=== PATIENT | male | born 1970 | race Caucasian/White ===

== ENCOUNTER → 2020-08-17 11:14 | Outpatient (BNVA) | payer OTHER, SELFPAY | PROVIDERS: Visit Provider Internal Medicine Gastroenterology | DX: Z76.89 Persons encountering health services in other specified circumstances (principal) ==

== ENCOUNTER 2020-08-18 11:05 | Day surgery (SDC) | payer OTHER, SELFPAY ==
--- NOTE | 2020-08-17 09:48 | P.CONAN_ITS ---
[facility] Family History Family History Father No problems noted. Mother No problems noted. Surgical History Surgical History Hx of hand surgery Social History Social History Smoking Status: Never smoker Use of substances other than those prescribed or required for medical reasons: No Meds Allergies Allergy/AdvReac Type Severity Reaction Status Date / Time No Known Allergies Allergy Unverified 05/20/20 19:41 [No Known Allergies*] Exam Airway Mallampati Class: II TM Dist: >3cm Neck ROM: Full
[2020-08-18 10:54] VITALS: BP 146/72; PULSE 83; RESP 20; TEMP 36.4; O2SAT 99; BMI 39.4
--- NOTE | 2020-08-18 11:10 | PC.NURSE ---
Patient has cirrhosis/ hasn't had alcohol x 3 years
--- NOTE | 2020-08-18 11:19 | MHC.SHP ---
Pre-Procedural Eval Section B Chief Complaint: Screening Relevant Family History (Specify if Yes): No Relevant Social History: None Present Medications: see Short Stay Collaborative assessment Medical History: Significant History (HTN, cirrhosis, h pylori) History of Previous Operations: No relevant previous surgery Allergies: Allergies Allergy/AdvReac Type Severity Reaction Status Date / Time No Known Allergies Allergy Unverified 05/20/20 19:41 [No Known Allergies*] Review of Systems Sugical H&P ROS: Negative: Constitution, Cardiovascular, Respiratory, Neurological, Psychiatric, Hem-Onc, Allergic/Immunologic, Gastrointestinal, Genitourinary, Musculoskeletal, Integumentary, Endocrine and Eyes/Ears/Nose/Throat Exam Surgical H&P Exam: Normal: HEENT, Normal: Heart, Normal: Lungs, Normal: Extremities, Normal: Abdomen, Normal: Skin and Normal: Neurological Plan Diagnosis/Plan: Unchanged Patient has been examined and remains a candidate for the planned procedure
--- NOTE | 2020-08-18 12:04 | HO.ANESPROP2 ---
[facility] Family History Family History Father No problems noted. Mother No problems noted. Surgical History Surgical History Hx of hand surgery Social History Social History Alcohol intake: never Smoking Status: Never smoker Use of substances other than those prescribed or required for medical reasons: No Have you been hit, kicked, punched, or otherwise hurt by someone within the past year? If so, by whom?: No Advance Directives: No Advance Directives Information Provided: Yes Recently lost weight without trying: No Meds Allergies Allergy/AdvReac Type Severity Reaction Status Date / Time No Known Allergies Allergy Unverified 05/20/20 19:41 [No Known Allergies*] Exam Exam Date and Time: August 18, 2020 1204 Height,Weight and Vital Signs: Height 5 ft 4 in Weight 104.326 kg Last Vital Signs Temp 97.6 F 08/18/20 10:54 Pulse 83 08/18/20 10:54 Resp 20 08/18/20 10:54 BP 146/72 H 08/18/20 10:54 Pulse Ox 99 08/18/20 10:54 Airway Mallampati Class: III TM Dist: >3cm Neck ROM: Full
--- NOTE | 2020-08-18 12:07 | PM.OP ---
Brief Operative Note Date of Service: 08/18/20 Pre-op diagnosis: colon screen Post-op diagnosis: same Procedure: Operative Information Procedure Description: Colonoscopy COLONOSCOPY Instrument: Olympus variable stiffness pediatric scope 190L Colonoscopy Monitoring: Vital signs and clinical assessment, continuous EKG monitoring, Pulse oximetry, Carbon Dioxide monitoring and blood pressure monitoring were done throughout the procedure. Colon withdrawal time was 23 minutes. Procedure: The patient was placed in the left lateral decubitis position and pre-procedure medications were administered. After a digital rectal examination of the ano-rectum, the video colonoscope was inserted into the rectum and advanced through the colon to the cecum/TI. The colonoscope was slowly withdrawn in a retrograde panoramic fashion and the colon mucosa was carefully examined including a retroflexed view of the rectum. Findings and interventions are described below. Procedure Difficulty: moderate Findings: Terminal Ileum-normal Cecum:normal Ascending Colon: normal Transverse Colon -normal Descending Colon:normal Sigmoid Colon: x 2 sessile polyps noted, one measured 10-12 mm and removed with cold snare, x 3 clips applied as he bled easily prob 2/2 liver disease, there was cessation of bleeding after clips applied. second polyp was sessile and measured 6-8 mm, again easily bled, one clip applied with cessation of bleeding Rectum: Retroflexion with small internal hemorrhoids, grade I Anorectum - normal Colon preparation: [place] Bowel Preparation Scale Right colon; 2 Transverse colon: 3 Left colon; 2 (0 = Unprepared colon segment with mucosa not seen due to solid stool that cannot be cleared. 1 = Portion of mucosa of the colon segment seen, but other areas of the colon segment not well seen due to staining, residual stool and/or opaque liquid. 2 = Minor amount of residual staining, small fragments of stool and/or opaque liquid, but mucosa of colon segment seen well. 3 = Entire mucosa of colon segment seen well with no residual staining, small fragments of stool or opaque liquid) Impression and Post Procedure Diagnosis: polyps internal hemorrhoids Plan: High fiber diet leaflet Avoid straining at stool, epsom salts and sitz bath, anusol supps or cream prn Repeat Colonoscopy in 5-10 years pending pathology, if adenoma then 5 yrs otherwise if hyperplastic then 10 yrs or earlier if clinically indicated Above findings were reviewed with the patient and relevant handouts were provided if indicated. Surgeon: Ernie Santos MD Anesthesia: MAC Estimated blood loss (mL): 0 Condition: stable Disposition: PACU
[2020-08-18 12:15] VITALS: BP 113/61; PULSE 102; RESP 20; TEMP 36.6; O2SAT 99
[2020-08-18 12:30] VITALS: BP 127/77; PULSE 97; RESP 18; O2SAT 96
[2020-08-18 12:44] VITALS: BP 123/67; PULSE 84; RESP 18; O2SAT 98
--- NOTE | 2020-08-18 14:20 | HO.POSTANES ---
Post Anesthesia Evaluation Post Anesthesia Evaluation Vital Signs: Vital Signs Temp Pulse Resp BP Pulse Ox 08/18/20 12:44 84 18 123/67 98 08/18/20 12:30 97 18 127/77 96 08/18/20 12:15 97.8 F 102 H 20 113/61 99 08/18/20 10:54 97.6 F 83 20 146/72 H 99 Anesthesia: Monitored Mental Status: Awake Pain Control: Satisfactory Nausea/Vomiting: None Hydration: Adequate Anesthesia-Related Issues: No Anes. Related Issues
--- NOTE | 2020-09-16 21:22 | W.PM.OPN ---
Operative Note Operative Note Date of Service: 08/18/20 Narrative: Pre op diagnosis: colon screen Post-op diagnosis: same Procedure Description: Colonoscopy COLONOSCOPY Instrument: Olympus variable stiffness pediatric scope 190L Colonoscopy Monitoring: Vital signs and clinical assessment, continuous EKG monitoring, Pulse oximetry, Carbon Dioxide monitoring and blood pressure monitoring were done throughout the procedure. Colon withdrawal time was 23 minutes. Procedure: The patient was placed in the left lateral decubitis position and pre-procedure medications were administered. After a digital rectal examination of the ano-rectum, the video colonoscope was inserted into the rectum and advanced through the colon to the cecum/TI. The colonoscope was slowly withdrawn in a retrograde panoramic fashion and the colon mucosa was carefully examined including a retroflexed view of the rectum. Findings and interventions are described below. Procedure Difficulty: moderate Findings: Terminal Ileum-normal Cecum:normal Ascending Colon: normal Transverse Colon -normal Descending Colon:normal Sigmoid Colon: x 2 sessile polyps noted, one measured 10-12 mm and removed with cold snare, x 3 clips applied as he bled easily prob 2/2 liver disease, there was cessation of bleeding after clips applied. second polyp was sessile and measured 6-8 mm, again easily bled, one clip applied with cessation of bleeding Rectum: Retroflexion with small internal hemorrhoids, grade I Anorectum - normal Colon preparation: [place] Bowel Preparation Scale Right colon; 2 Transverse colon: 3 Left colon; 2 (0 = Unprepared colon segment with mucosa not seen due to solid stool that cannot be cleared. 1 = Portion of mucosa of the colon segment seen, but other areas of the colon segment not well seen due to staining, residual stool and/or opaque liquid. 2 = Minor amount of residual staining, small fragments of stool and/or opaque liquid, but mucosa of colon segment seen well. 3 = Entire mucosa of colon segment seen well with no residual staining, small fragments of stool or opaque liquid) Impression and Post Procedure Diagnosis: polyps internal hemorrhoids Plan: High fiber diet leaflet Avoid straining at stool, epsom salts and sitz bath, anusol supps or cream prn Repeat Colonoscopy in 5-10 years pending pathology, if adenoma then 5 yrs otherwise if hyperplastic then 10 yrs or earlier if clinically indicated Above findings were reviewed with the patient and relevant handouts were provided if indicated. Surgeon: Ernie Santos MD Anesthesia: MAC Estimated blood loss (mL): 0 Condition: stable Disposition: PACU
== END 2020-08-18 13:25 | disposition home or self-care (01) ==
PROVIDERS: Visit Provider Internal Medicine Gastroenterology
PROC: 0DJD8ZZ Inspection of Lower Intestinal Tract, Via Natural or Artificial Opening Endoscopic (ICD-10-PCS; CPT 45378; principal; 2020-08-18 11:30)
DX: Z12.11 Encounter for screening for malignant neoplasm of colon (principal); D12.5 Benign neoplasm of sigmoid colon; K64.0 First degree hemorrhoids
CPT/HCPCS: 45385; 88305

== ENCOUNTER → 2020-11-22 09:16 | Outpatient (BNVA) | payer OTHER, SELFPAY | PROVIDERS: Visit Provider Internal Medicine Gastroenterology ==

== ENCOUNTER 2020-11-29 10:50 | Outpatient (REF) | payer OTHER, SELFPAY ==
[2020-11-29 12:09] LABS: Basophils Percent Auto 0.7 % (0-2); Eosinophils Absolute Auto 0.1 X10*3/uL (0.0-0.4); Eosinophils Percent Auto 1.9 % (0-4); Imm Gran Abs Auto 0.01 X10*3/uL (0.00-0.03); Imm Gran Pct Auto 0.2 % (0.0-0.4); MANUAL DIFF FLAG SCAN; Red Cell Distribution Width 14.6 % (11.0-16.0); SCAN SMEAR FLAG 1
[2020-11-29 12:11] LABS: Hematocrit 38.5 % (42-52); Hemoglobin 12.9 g/dl (14.0-18.0); Lymphocytes Absolute Auto 0.8 X10*3/uL (1.2-4.9); Lymphocytes Percent Auto 19.1 % (20-40); Mean Corpuscular HGB Conc 33.5 g/dl (31.0-36.0); Mean Corpuscular Hemoglobin 26.8 pg (27.0-33.0); Mean Corpuscular Volume 79.9 fL (80-98); Mean Platelet Volume 12.6 fL (9.4-12.4); Monocytes Absolute Auto 0.3 X10*3/uL (0.1-1.2); Monocytes Percent Auto 7.9 % (2-11); Neutrophils Absolute Auto 2.9 X10*3/uL (2.0-8.3); Neutrophils Percent Auto 70.2 % (45-73); Red Blood Count 4.82 X10*6/uL (4.60-5.80); White Blood Count 4.2 X10*3/uL (4.8-10.8)
[2020-11-29 12:12] LABS: PLT ABN DIST 1; Platelet Count 90 X10*3/uL (160-400)
[2020-11-29 12:14] LABS: INTERNATIONAL NORM RATIO 1.3 (0.9-1.1); Prothrombin Time 14.9 SEC (10.8-13.0)
[2020-11-29 12:36] LABS: Alanine Aminotransferase 19 U/L (0-40); Albumin Level 4.3 g/dL (3.5-5.0); Alkaline Phosphatase 96 U/L (39-117); Anion Gap 13 (12-20); Aspartate Amino Transferase 31 U/L (5-37); Bilirubin Total 0.9 mg/dL (0.0-1.0); Blood Urea Nitrogen 4 mg/dL (9-16); Calcium 8.7 mg/dL (8.4-10.2); Carbon Dioxide 26 mmol/L (22-29); Chloride 105 mmol/L (96-108); Estimated Glomerular Filt Rate > 60; Glucose Random 97 mg/dL (60-115); Potassium 3.9 mmol/L (3.3-5.1); Sodium 140 mmol/L (135-145); Total Protein 7.1 g/dL (6.5-8.0)
== END 2020-11-29 10:51 | disposition home or self-care (01) ==
LOC: HO.LAB 10:50
PROVIDERS: Visit Provider Internal Medicine Gastroenterology
DX: K74.60 Unspecified cirrhosis of liver (principal)
CPT/HCPCS: 36415; 80053; 85025; 85610

== ENCOUNTER 2020-12-15 10:11 | Outpatient (REF) | payer OTHER, SELFPAY ==
--- NOTE | ~2020-12-15 | US_ITS ---
EXAMINATION: US ABDOMEN LIMITED WITH LIVER ELASTOGRAPHY CLINICAL INFORMATION: Cirrhosis of liver COMPARISON: Ultrasound abdomen the 2019 TECHNIQUE: Real-time imaging of the abdominal viscera. Noninvasive ultrasound liver fibrosis assessment is performed using [place] ElastPQ point quantification shear wave elastography (pSWE) with a C5-2 MHz transducer. Multiple elastography samples are obtained. FINDINGS: PANCREAS: Normal. The visualized pancreatic head and body are normal in appearance. The remainder of the pancreas is obscured from visualization by the overlying bowel gas. LIVER: The liver demonstrates normal size, lobulated contour and coarse increased echogenicity. No focal lesion or intrahepatic biliary duct dilatation. The right lobe measures 15.5 cm in length. The left lobe measures 14.2 cm in length. Portal flow is hepatopedal Shear wave liver elastography median stiffness is 1.59 m/s (reference: normal median stiffness is 1.3 m/s or less). IQR/median stiffness to assess sampling precision is 0.41 (reference: good quality data set is IQR/median stiffness of 0.15 or less). GALLBLADDER: Normal. The gallbladder is physiologically distended without evidence of stones, sludge, polyps, wall thickening or pericholecystic fluid. COMMON BILE DUCT: Normal in caliber measuring 0.5 cm in diameter. RIGHT KIDNEY: Normal. No hydronephrosis. No renal calculi or focal parenchymal lesions. The kidney measures 11.9 cm in maximum dimension. FREE FLUID: None. US/US abdomen kimball w elastography IMPRESSION: 1. Coarse echogenic liver without focal lesion. No additional abnormality seen. 2. Liver elastography: 1.59 m/s cACLD (ruled out) REFERENCE: Society of Radiologists in Ultrasound Liver Stiffness Thresholds (2020): LIVER STIFFNESS THRESHOLDS: *Liver Stiffness equal or less than 1.3 m/s: High probability of being normal. *Liver Stiffness less than 1.7 m/s: In the absence of other known clinical signs, rules out compensated advanced chronic liver disease. *Liver Stiffness 1.7-2.1 m/s: Suggestive of compensated advanced chronic liver disease but need further test for confirmation. *Liver Stiffness over 2.1 m/s: Rules in compensated advanced chronic liver disease. *Liver Stiffness over 2.4 m/s: Suggestive of clinically significant portal hypertension. QUALITY OF DATA SET: *IQR/Median value equal or less than 0.15 implies a quality data set. *IQR/Median value over 0.15 implies a poor quality data set. SIGNIFICANT CHANGE FROM PRIOR EXAM: Significant change if liver stiffness measurement is 10% or greater from prior exam. OTHER CONSIDERATIONS: The stage of liver fibrosis may be overestimated in the setting of acute hepatitis, liver inflammation, elevated liver function tests, hepatic vascular congestion, obstructive cholestasis, non-fasting state, and infiltrative diseases such as amyloidosis and lymphoma. In some patients with NAFLD, the liver stiffness thresholds for compensated advanced chronic liver disease may be lower. In causes other than viral hepatitis and NAFLD, liver stiffness thresholds are not well established.
== END 2020-12-15 10:12 | disposition home or self-care (01) ==
LOC: HO.US 10:11
PROVIDERS: Visit Provider Internal Medicine Gastroenterology
DX: K74.60 Unspecified cirrhosis of liver (principal)
CPT/HCPCS: 76705; 76981

== ENCOUNTER 2021-01-03 12:52 | Outpatient (REF) | payer OTHER, SELFPAY | END 2021-01-03 12:53 | disposition home or self-care (01) | LOC: HO.LAB 12:52 | PROVIDERS: Visit Provider Internal Medicine | DX: Z20.822 Contact with and (suspected) exposure to COVID-19 (principal) | CPT/HCPCS: C9803; U0003; U0005 ==

== ENCOUNTER → 2021-03-18 09:12 | Outpatient (BNVA) | payer OTHER, SELFPAY | PROVIDERS: Visit Provider Internal Medicine Gastroenterology | DX: K74.60 Unspecified cirrhosis of liver (principal) | CPT/HCPCS: 99212 ==

== ENCOUNTER 2021-03-18 10:17 | Outpatient (REF) | payer OTHER, SELFPAY ==
[2021-03-22 13:41] LABS: H Pylori Breath Test NOT DETECTED (NOT DETECTED)
== END 2021-03-18 10:18 | disposition home or self-care (01) ==
LOC: HO.LNP 10:17
PROVIDERS: Visit Provider Internal Medicine Gastroenterology
DX: K74.60 Unspecified cirrhosis of liver (principal)
CPT/HCPCS: 83013

== ENCOUNTER 2021-06-21 10:35 | Outpatient (REF) | payer OTHER, SELFPAY ==
[2021-06-21 11:29] LABS: Hematocrit 43.2 % (42-52); Lymphocytes Absolute Auto 0.5 X10*3/uL (1.2-4.9); MANUAL DIFF FLAG SCAN; PLT CLUMP 1; SCAN SMEAR FLAG 1
[2021-06-21 11:31] LABS: Basophils Percent Auto 0.5 % (0-2); Eosinophils Absolute Auto 0.1 X10*3/uL (0.0-0.4); Eosinophils Percent Auto 1.6 % (0-4); Hemoglobin 14.9 g/dl (14.0-18.0); Imm Gran Abs Auto 0.01 X10*3/uL (0.00-0.03); Imm Gran Pct Auto 0.3 % (0.0-0.4); Lymphocytes Percent Auto 14.7 % (20-40); Mean Corpuscular HGB Conc 34.5 g/dl (31.0-36.0); Mean Corpuscular Hemoglobin 29.3 pg (27.0-33.0); Mean Platelet Volume 10.8 fL (9.4-12.4); Monocytes Absolute Auto 0.4 X10*3/uL (0.1-1.2); Monocytes Percent Auto 10.4 % (2-11); Neutrophils Absolute Auto 2.7 X10*3/uL (2.0-8.3); Neutrophils Percent Auto 72.5 % (45-73); Platelet Count 101 X10*3/uL (160-400); Red Blood Count 5.08 X10*6/uL (4.60-5.80); White Blood Count 3.7 X10*3/uL (4.8-10.8)
[2021-06-21 11:39] LABS: INTERNATIONAL NORM RATIO 1.3 (0.9-1.1); Prothrombin Time 15.1 SEC (9.9-13.0)
[2021-06-21 11:50] LABS: Alanine Aminotransferase 50 U/L (0-40); Albumin Level 4.4 g/dL (3.5-5.0); Alkaline Phosphatase 129 U/L (39-117); Anion Gap 14 (12-20); Aspartate Amino Transferase 67 U/L (5-37); Bilirubin Total 1.9 mg/dL (0.0-1.0); Blood Urea Nitrogen 6 mg/dL (9-16); Calcium 8.9 mg/dL (8.4-10.2); Carbon Dioxide 23 mmol/L (22-29); Chloride 106 mmol/L (96-108); Estimated Glomerular Filt Rate > 60; Glucose Random 98 mg/dL (60-115); Potassium 3.5 mmol/L (3.3-5.1); Sodium 139 mmol/L (135-145); Total Protein 7.2 g/dL (6.5-8.0)
== END 2021-06-21 10:36 | disposition home or self-care (01) ==
LOC: HO.LAB 10:35
PROVIDERS: Visit Provider Internal Medicine Gastroenterology
DX: K74.60 Unspecified cirrhosis of liver (principal); K75.81 Nonalcoholic steatohepatitis (NASH)
CPT/HCPCS: 36415; 80053; 85025; 85610

== ENCOUNTER 2021-11-28 09:55 | Outpatient (REF) | payer OTHER, SELFPAY ==
[2021-11-28 11:26] LABS: INTERNATIONAL NORM RATIO 1.4 (0.9-1.1); Prothrombin Time 15.6 SEC (9.9-13.0)
[2021-11-28 11:34] LABS: Basophils Percent Auto 0.6 % (0-2); Hemoglobin 14.9 g/dl (14.0-18.0); PLT CLUMP 1; SCAN SMEAR FLAG 1
[2021-11-28 11:36] LABS: Eosinophils Absolute Auto 0.1 X10*3/uL (0.0-0.4); Eosinophils Percent Auto 1.8 % (0-4); Hematocrit 43.2 % (42.0-52.0); Imm Gran Abs Auto 0.02 X10*3/uL (0.00-0.03); Imm Gran Pct Auto 0.4 % (0.0-0.4); Lymphocytes Absolute Auto 0.9 X10*3/uL (1.2-4.9); Lymphocytes Percent Auto 17.3 % (20-40); Mean Corpuscular HGB Conc 34.5 g/dl (31.0-36.0); Mean Corpuscular Hemoglobin 30.5 pg (27.0-33.0); Mean Corpuscular Volume 88.3 fL (80.0-98.0); Mean Platelet Volume 11.4 fL (9.4-12.4); Monocytes Absolute Auto 0.4 X10*3/uL (0.1-1.2); Monocytes Percent Auto 7.7 % (2-11); Neutrophils Absolute Auto 3.9 x10*3/uL (2.0-8.3); Neutrophils Percent Auto 72.2 % (45-73); Red Blood Count 4.89 X10*6/uL (4.60-5.80); Red Cell Distribution Width 13.7 % (11.0-16.0)
[2021-11-28 11:40] LABS: White Blood Count 5.4 X10*3/uL (4.8-10.8)
[2021-11-28 11:41] LABS: Platelet Count 94 X10*3/uL (160-400)
[2021-11-28 11:42] LABS: MANUAL DIFF FLAG NO
[2021-11-28 11:55] LABS: Alanine Aminotransferase 33 U/L (0-40); Albumin Level 3.7 g/dL (3.5-5.0); Alkaline Phosphatase 133 U/L (39-117); Anion Gap 10 (12-20); Aspartate Amino Transferase 56 U/L (5-37); Bilirubin Total 1.8 mg/dL (0.0-1.0); Blood Urea Nitrogen 7 mg/dL (9-16); Calcium 8.8 mg/dL (8.4-10.2); Carbon Dioxide 26 mmol/L (22-29); Chloride 106 mmol/L (96-108); Estimated Glomerular Filt Rate > 60; Glucose Random 97 mg/dL (60-115); Potassium 3.6 mmol/L (3.3-5.1); Sodium 138 mmol/L (135-145); Total Protein 6.5 g/dL (6.5-8.0)
[2021-11-28 12:22] LABS: Ferritin 58 ng/mL (20-250); Vitamin D 25-OH Total 13.8 ng/mL (>30)
[2021-11-28 12:24] LABS: Vitamin B12 879 pg/mL (200-900)
[2021-12-02 01:06] LABS: Zinc 52 mcg/dL (60-130)
[2021-12-03 17:02] LABS: Vitamin A 11 mcg/dL (38-98)
== END 2021-11-28 09:56 | disposition home or self-care (01) ==
LOC: HO.LAB 09:55
PROVIDERS: Visit Provider Internal Medicine Gastroenterology
DX: K75.81 Nonalcoholic steatohepatitis (NASH) (principal); K74.60 Unspecified cirrhosis of liver
CPT/HCPCS: 36415; 80053; 82306; 82607; 82728; 82746; 84590; 84630; 85025; 85610; 99212

== ENCOUNTER 2024-03-24 10:25 | Outpatient (REF) | payer OTHER, SELFPAY ==
[2024-03-24 11:46] LABS: MANUAL DIFF FLAG NO
[2024-03-24 12:48] LABS: Basophils Percent Auto 0.5 % (0-2); Eosinophils Absolute Auto 0.1 X10*3/uL (0.0-0.4); Eosinophils Percent Auto 3.1 % (0-4); Hematocrit 35.8 % (42.0-52.0); Hemoglobin 12.4 g/dl (14.0-18.0); Imm Gran Abs Auto 0.01 X10*3/uL (0.00-0.03); Imm Gran Pct Auto 0.2 % (0.0-0.4); Lymphocytes Absolute Auto 0.9 X10*3/uL (1.2-4.9); Lymphocytes Percent Auto 20.2 % (20-40); Mean Corpuscular HGB Conc 34.6 g/dl (31.0-36.0); Mean Corpuscular Hemoglobin 30.8 pg (27.0-33.0); Mean Corpuscular Volume 88.8 fL (80.0-98.0); Monocytes Absolute Auto 0.5 X10*3/uL (0.1-1.2); Monocytes Percent Auto 10.7 % (2-11); Neutrophils Absolute Auto 2.8 x10*3/uL (2.0-8.3); Neutrophils Percent Auto 65.3 % (45-73); Red Blood Count 4.03 X10*6/uL (4.60-5.80); Red Cell Distribution Width 14.5 % (11.0-16.0); White Blood Count 4.2 X10*3/uL (4.8-10.8)
[2024-03-24 12:50] LABS: Platelet Count 81 X10*3/uL (160-400)
[2024-03-24 12:52] LABS: INTERNATIONAL NORM RATIO 1.3 (0.9-1.1); Prothrombin Time 16.3 SEC (11.1-13.3)
[2024-03-24 13:31] LABS: Alanine Aminotransferase 15 U/L (0-40); Albumin Level 3.5 g/dL (3.5-5.0); Alkaline Phosphatase 108 U/L (39-117); Anion Gap 11 (12-20); Aspartate Amino Transferase 32 U/L (5-37); Blood Urea Nitrogen 8 mg/dL (9-16); Calcium 9.1 mg/dL (8.4-10.2); Carbon Dioxide 25 mmol/L (22-29); Chloride 108 mmol/L (96-108); Estimated Glomerular Filt Rate > 60; Glucose Random 82 mg/dL (60-115); Magnesium 1.8 mg/dL (1.6-2.6); Sodium 140 mmol/L (135-145); Total Protein 6.5 g/dL (6.5-8.0)
[2024-03-24 13:46] LABS: Ferritin 29 ng/mL (20-250)
[2024-03-24 13:52] LABS: Folate 11.8 ng/mL (> or = 4.0); Vitamin B12 1110 pg/mL (200-900)
[2024-03-25 08:50] LABS: HBS Num1 > 1000.00 mIU/mL (0-7.99); HBc Num1 0.21 S/CO (0.00-0.79); HBsAGNum1 0.34 S/CO (0.00-0.99); Hepatitis A Antibody IgM 0.15 Index (0-0.79); Hepatitis B Core Antibody Nonreactive (Nonreactive); Hepatitis B Surface Antigen Negative (Negative); ~HepC Num1 0.13 S/CO (0.00-0.79); ~Hepatitis A Antibody IgM Nonreactive (Nonreactive); ~Hepatitis B Surface Antibody REACTIVE (Nonreactive); ~Hepatitis C Antibody Nonreactive (Nonreactive)
[2024-03-26 16:28] LABS: Zinc 42 mcg/dL (60-130)
[2024-03-29 10:08] LABS: Alpha-Tocopherol 8.5 mg/L (5.7-19.9); Beta-Gamma Tocopherol 1.5 mg/L (<=4.3)
[2024-03-29 10:58] LABS: Vitamin B1 26 nmol/L (8-30)
[2024-03-29 13:38] LABS: Vitamin C 0.4 mg/dL (0.2-2.1)
[2024-03-29 13:54] LABS: Nicotinamide 25 ng/mL (see note); Vit B3 - Nicotinic Acid <20 ng/mL (see note); Vitamin B5 (Pantothenic Acid) <=40 ng/mL (<275)
[2024-03-29 14:58] LABS: Vitamin B6 17.2 ng/mL (2.1-21.7)
[2024-03-29 16:35] LABS: Vitamin A 6 mcg/dL (38-98)
[2024-03-29 17:08] LABS: Vitamin K1 430 pg/mL (130-1500)
== END 2024-03-24 10:26 | disposition home or self-care (01) ==
LOC: HO.LAB 10:25
PROVIDERS: Visit Provider Internal Medicine Gastroenterology
DX: K70.31 Alcoholic cirrhosis of liver with ascites (principal)
CPT/HCPCS: 36415; 80053; 82180; 82306; 82607; 82728; 82746; 83735; 84207; 84425; 84446; 84590; 84591; 84597; 84630; 85025; 85610; 86704; 86706; 86709; 86803; 87340; 99212

== ENCOUNTER 2024-03-24 10:25 | Outpatient (AMB) | payer MEDICAID, SELFPAY ==
--- NOTE | 2024-03-24 10:26 | MHC.OFFVIS ---
Vital Signs 03/24/24 10:34 Height 5 ft 4 in Weight 255 lb 11.779 oz BMI 43.9 BP 125/60 Blood Pressure Location Lt brachial Position Sitting Pulse 69 Intake Visit Reasons: Cirrhosis Intake Note: Leroy presents in the office as a follow up Cirrhosis. CC: He states that he is not having any concerns GI oakes. Here with - states that he is using lactulose and it helps him go to the bathroom and he suffers from elevated levels of ammonia. 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 used RECAP- index visit 03/2019 He had abdo pain 1 month prior to index visit, felt stomach full, pain in the ribs pain then gone, after being there for 2 weeks, had imaging as below with cirrhosis at index visit he felt normal, appetite was good, weight stable admitted to nausea, no vomiting he hadn't drank alcohol for 1 month at time of index visit he was drinking 8-10 cans beer daily for 30 yrs or so before this he used cocaine when he was younger LABS: bili 2.5, AST 78, ALT 28, alk phos 182, INR: 1.7 on initila labs MELD Na labs 03/2019--16 on repeat labs, h pylori pos, GOT RX, MELD-NA- 04/2020-- 12 MELD 9-- 11/2020 Imaging and endoscopies: CT 02/01/19- Ct with diverticulsois, cirrhosis, contracted GB. u/s 03/2019- cirrhosis, F2-3 on elastography EGD: 05/2019- small varices grade I u/s 07/2019--cirrhosis, no HCC EGD 05/2020--small varix, nodule at [facility], gastritis, h pylori still seen, chronic inflammation at [facility] u/s 12/2020--no liver leisons, stable INTERIM: he has been hospital few times, having ascites and confusion he has been off alcohol for 1 yr or so feels fluid again in abdomen, but been taking amlodipine and ibuprofen on regular basis aldactone giving him nipple pain no nausea or vomiting memory is variable taking lactulose, with 3-5 times toilet no melena or rectal bleeding EXAM: GENERAL: The patient is well developed and nontoxic. overweight VITAL SIGNS:see workflow HEENT: Nonicteric sclerae, PERRLA, EOMI. Oropharynx clear. Moist mucous membranes. Conjunctivae appear well perfused. No thyroid mass. CHEST: Chest wall is nontender. HEART: Regular rate and rhythm without murmurs. LUNGS: Clear to auscultation bilaterally. ABDOMEN: Soft, positive bowel sounds, nontender, no organomegaly.no flank tenderness--dullness , no obvious thrill SKIN: No rash, no excessive bruising, petechiae, or purpura. mild edema NEUROLOGIC: Cranial nerves II-XII intact without motor/sensory deficit. Assessment & Plan 1/ decompensated cirrhosis, likely 2/2 alcohol abuse 2/ nipple pain due to aldactone PLAN: 1/ advised on ongoing alcohol abstinence as before, weight loss 2/ hep b vaccine, complete series 3/ EGD for varices screen in 1-2 yrs, no evidence of hepatic encephalopathy 4/ u/s for HCC screen q6 months, needs one now, if large ascites then drain 5/ recheck labs today 6/ stop aldactone, use amiloride and lasix 7/ stop nsaids and avoid can use low dose tylenol 8/ might be good candidate for liver transpalnt program at [facility], will await results of labs etc [facility] Surgical History H/O colonoscopy History of esophagogastroduodenoscopy (EGD) Hx of hand surgery Family History Mother Diabetes Heart problem Social History Household Members: Significant Other and Children Alcohol intake: former Year quit: 2018 Physical Exam Vital Signs: Last Vital Signs Pulse 69 03/24/24 10:34 BP 125/60 03/24/24 10:34 BMI result Body Mass Index 43.9 Assessment & Plan Assessment & Plan (1) Cirrhosis: Code(s): K74.60 - Unspecified cirrhosis of liver Category: Medical Qualifiers: Hepatic cirrhosis type: alcoholic cirrhosis Ascites presence: with ascites Qualified Code(s): K70.31 - Alcoholic cirrhosis of liver with ascites Plan: see above Orders: Orders Complete Blood Count Auto Diff Today K74.60 - Unspecified cirrhosis of liver Comprehensive Met. Panel Today K74.60 - Unspecified cirrhosis of liver, K75.81 - Nonalcoholic steatohepatitis (TAYLOR) Prothrombin Time INR Today K74.60 - Unspecified cirrhosis of liver Vitamin A Today K74.60 - Unspecified cirrhosis of liver Vitamin C Today K74.60 - Unspecified cirrhosis of liver Vitamin B6 Today K74.60 - Unspecified cirrhosis of liver Vitamin B3 (Niacin) Today K74.60 - Unspecified cirrhosis of liver Magnesium Today K74.60 - Unspecified cirrhosis of liver Vitamin K1 Today K74.60 - Unspecified cirrhosis of liver Ferritin Today K74.60 - Unspecified cirrhosis of liver US abdomen comp w elastography Today K74.60 - Unspecified cirrhosis of liver Hepatitis A,B,C Profile Today K74.60 - Unspecified cirrhosis of liver Vitamin D 25-OH Total Today K74.60 - Unspecified cirrhosis of liver Vitamin B5 (Pantothenic Acid) Today K74.60 - Unspecified cirrhosis of liver Vitamin B12 and Folate Today K74.60 - Unspecified cirrhosis of liver Vitamin B1 Today K74.60 - Unspecified cirrhosis of liver Vitamin E Today K74.60 - Unspecified cirrhosis of liver Zinc Today K74.60 - Unspecified cirrhosis of liver Medications: New furosemide 40 mg PO DAILY 30 tabs 2RF amiloride 5 mg PO DAILY 30 tabs 2RF propranolol 20 mg PO DAILY 30 tabs 2RF Coding Level of Care Code Est Pt Level 4 (30276) Diagnoses Alcoholic cirrhosis of liver with ascites K70.31 Hepatic cirrhosis type: alcoholic cirrhosis Ascites presence: with ascites
[2024-03-24 10:34] VITALS: BP 125/60; PULSE 69; BMI 43.9
== END 2024-03-24 11:07 | disposition home or self-care (01) ==
PROVIDERS: Visit Provider Internal Medicine Gastroenterology
DX: K70.31 Alcoholic cirrhosis of liver with ascites (principal)
CPT/HCPCS: 99214

== ENCOUNTER 2024-04-08 08:50 | Outpatient (REF) | payer SELFPAY | END 2024-04-08 08:51 | disposition home or self-care (01) | LOC: HO.US 08:50 | PROVIDERS: Visit Provider Internal Medicine Gastroenterology | DX: Z13.89 Encounter for screening for other disorder (principal) ==

== ENCOUNTER 2024-05-23 10:55 | Outpatient (AMB) | payer MEDICAID, SELFPAY ==
[2024-05-23 11:12] VITALS: BP 131/61; PULSE 69; O2SAT 96; BMI 46.0
--- NOTE | 2024-05-23 11:12 | MHC.OFFVIS ---
Vital Signs 05/23/24 11:12 Height 5 ft 4 in Weight 268 lb 1.314 oz BMI 46.0 BP 131/61 Blood Pressure Location Lt brachial Position Sitting Pulse 69 Pulse Source Pulse Oximeter Pulse Oximetry (%) 96 Oxygen Delivery Method Room Air Intake Visit Reasons: 6 week f/u Intake Note: Pt presents to the office today for a 6 week follow up. Pt states he is feeling okay and denies any N/V/D. 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 He had abdo pain 1 month prior to index visit, felt stomach full, pain in the ribs pain then gone, after being there for 2 weeks, had imaging as below with cirrhosis at index visit he felt normal, appetite was good, weight stable admitted to nausea, no vomiting he hadn't drank alcohol for 1 month at time of index visit he was drinking 8-10 cans beer daily for 30 yrs or so before this he used cocaine when he was younger LABS: bili 2.5, AST 78, ALT 28, alk phos 182, INR: 1.7 on initila labs MELD Na labs 03/2019--16 on repeat labs, h pylori pos, GOT RX, MELD-NA- 04/2020-- 12 MELD 9-- 11/2020 Imaging and endoscopies: CT 02/01/19- Ct with diverticulsois, cirrhosis, contracted GB. u/s 03/2019- cirrhosis, F2-3 on elastography EGD: 05/2019- small varices grade I u/s 07/2019--cirrhosis, no HCC EGD 05/2020--small varix, nodule at [facility], gastritis, h pylori still seen, chronic inflammation at [facility] u/s 12/2020--no liver leisons, stable INTERIM: doing well mild RUQ discomfort remains off alcohol appetite is good, no melena or rectal bleeding not had US yet EXAM: GENERAL: The patient is well developed and nontoxic. overweight VITAL SIGNS:see workflow HEENT: Nonicteric sclerae, PERRLA, EOMI. Oropharynx clear. Moist mucous membranes. Conjunctivae appear well perfused. No thyroid mass. CHEST: Chest wall is nontender. HEART: Regular rate and rhythm without murmurs. LUNGS: Clear to auscultation bilaterally. ABDOMEN: Soft, positive bowel sounds, nontender, no organomegaly.no flank tenderness--dullness , no obvious thrill SKIN: No rash, no excessive bruising, petechiae, or purpura. mild edema NEUROLOGIC: Cranial nerves II-XII intact without motor/sensory deficit. Assessment & Plan 1/ decompensated cirrhosis, likely 2/2 alcohol abuse PLAN: 1/ advised on ongoing alcohol abstinence as before, weight loss 2/ hep b vaccine, complete series 3/ EGD for varices screen in 1-2 yrs, no evidence of hepatic encephalopathy 4/ u/s for HCC screen q6 months, needs one now-pending 5/ recheck labs next visit 6/ use amiloride and lasix as doing 7/ avoid nsaids and avoid can use low dose tylenol 8/ might be good candidate for liver transplant program at [facility], but MELD 3.0 is 10 right now ON LICENSE OF [facility] Surgical History H/O colonoscopy History of esophagogastroduodenoscopy (EGD) Hx of hand surgery Family History Mother Diabetes Heart problem Social History Household Members: Significant Other and Children Alcohol intake: former Year quit: 2018 Physical Exam Vital Signs: Last Vital Signs Pulse 69 05/23/24 11:12 BP 131/61 05/23/24 11:12 Pulse Ox 96 05/23/24 11:12 Oxygen Delivery Method Room Air 05/23/24 11:12 BMI result Body Mass Index 46.0 Assessment & Plan Assessment & Plan (1) Cirrhosis: Code(s): K74.60 - Unspecified cirrhosis of liver Category: Medical Qualifiers: Hepatic cirrhosis type: alcoholic cirrhosis Ascites presence: with ascites Qualified Code(s): K70.31 - Alcoholic cirrhosis of liver with ascites Plan: see above Medications: New multivitamin 1 tab PO DAILY 90 tabs 2RF Refilled vitamin A palmitate 10,000 units PO DAILY 90 caps 2RF cholecalciferol (vitamin D3) 25 mcg PO DAILY 90 caps 2RF Coding Level of Care Code Est Pt Level 4 (38380) Diagnoses Alcoholic cirrhosis of liver with ascites K70.31 Hepatic cirrhosis type: alcoholic cirrhosis Ascites presence: with ascites
== END 2024-05-23 11:57 | disposition home or self-care (01) ==
PROVIDERS: Visit Provider Internal Medicine Gastroenterology
DX: K70.31 Alcoholic cirrhosis of liver with ascites (principal)
CPT/HCPCS: 99214

== ENCOUNTER → 2024-05-23 10:55 | Outpatient (BNVA) | payer SELFPAY | PROVIDERS: Visit Provider Internal Medicine Gastroenterology | DX: K70.31 Alcoholic cirrhosis of liver with ascites (principal) | CPT/HCPCS: 99212 ==

== ENCOUNTER 2024-09-26 10:23 | Outpatient (REF) | payer MEDICAID, SELFPAY ==
[2024-09-26 11:58] LABS: MANUAL DIFF FLAG NO
[2024-09-26 12:26] LABS: Basophils Percent Auto 0.4 % (0-2); Eosinophils Absolute Auto 0.1 X10*3/uL (0.0-0.4); Eosinophils Percent Auto 2.4 % (0-4); Hematocrit 37.5 % (42.0-52.0); Hemoglobin 13.2 g/dl (14.0-18.0); INTERNATIONAL NORM RATIO 1.4 (0.9-1.1); Imm Gran Abs Auto 0.02 X10*3/uL (0.00-0.03); Imm Gran Pct Auto 0.4 % (0.0-0.4); Lymphocytes Absolute Auto 0.9 X10*3/uL (1.2-4.9); Lymphocytes Percent Auto 18.5 % (20-40); Mean Corpuscular HGB Conc 35.2 g/dl (31.0-36.0); Mean Corpuscular Volume 85.2 fL (80.0-98.0); Mean Platelet Volume 10.8 fL (9.4-12.4); Monocytes Absolute Auto 0.5 X10*3/uL (0.1-1.2); Monocytes Percent Auto 10.8 % (2-11); Neutrophils Absolute Auto 3.4 x10*3/uL (2.0-8.3); Neutrophils Percent Auto 67.5 % (45-73); Prothrombin Time 16.2 SEC (10.9-12.4)
[2024-09-26 12:27] LABS: Platelet Count 82 X10*3/uL (160-400)
--- OUTSIDE RECORDS SUMMARY | 2024-09-26 13:56 | XMS_ITS | Encounter Summary ---
Author Organization [facility] Address [address] [place] [address] Care Team Providers Care Precision Devices Inspector/Tester Name Role Phone Samaria Mccullough Primary Care Provider [phone] Reason for Visit * Reason Comments Individual Counseling Encounter Details Date Type Department Care Team ([facility] st Contact Info) Description 09/25/2024 3:00 PM EST / Visits [facility] [address] [place] [address] Constantine Farris, SKATING RINK MANAGER [address] [place] [address] Current severe episode of major depressive disorder without psychotic features, unspecified whether recurrent (HCC-CMS) (Primary Dx) Social History Tobacco Use Types Packs/Day Years Used Date Smoking Tobacco: Never Passive Smoke Exposure: Never Smokeless Tobacco: Never Alcohol Use Standard Drinks/Week Comments Not Currently 0 (1 standard drink = 0.6 oz pure alcohol) stopped about a month ago on November 2022. Social Connections Answer Date Recorded Connectedness 1 03/14/2024 Financial Resource Strain Answer Date R ecorded Financial Resource Strain 2 2023 Stress Answer Date Recorded Stress 1 03/14/2024 Physical Activity Answer Date Recorded Physical Activity 0 04/25/2019 Food Insecurity Answer Date Recorded Food 2 03/14/2024 Transportation Needs Answer Date Record ed Transportation 1 03/14/2024 Housing Stability Answer Date Recorded Housing 1 03/14/2024 Safety and Environment Answer Date Karan rded Safety 1 02/11/2024 Utilities Answer Date Recorded Utilities 1 03/14/2024 Employment Answer Date Recorded Stress 0 10/04/2022 Sex and Gender Information Value Date Recorded Sex Assigned at Male 09/27/2017 9:58 AM PST Legal Sex Male 12:18 PM PDT Gender Identity Male 09/27/2017 9:58 AM PST Sexual Orientation Straight 09/27/2017 9: 58 AM PST documented as of this encounter Plan of Treatment Upcoming Encounters Date Type Department Care Team (Late st Contact Info) Description 10/16/2024 2:00 PM EST Office Visit [address] [phone] Samaria Mccullough PA [address] [place] [id number] Luz Patiño [address] [place] [phone] 10/30/2024 3:15 PM EST /MH Visits [facility] [address] [place] [address] Constantine Farris LCSW [address] [place] [phone] documented as of this encounter Visit Diagnoses Diagnosis Current severe episode of major depressive disorder without psychotic features, unspecified whether recurrent ([facility])- Primary documented in this encounter Additional Health Concerns Assessment Noted Time PHQ-9 Depression Total Score: 0 06/30/20 24 2:25 PM PDT documented as of this encounter Care Teams Precision Devices Inspector/Tester Relationship Specialty Start Date End Date Samaria Mccullough PA [address] [place] [phone] PCP - General Primary Care 12/18/23 documented as of this encounter
--- OUTSIDE RECORDS SUMMARY | 2024-09-26 13:56 | XMS_ITS | Clinical Summary ---
Author Organization [facility] Address [address] [place] [address] Phone Care Team Providers Care Product Coordinator Name Role Phone Abel Henderson Primary Care Provider Allergies No known active allergies Medications Medication Sig Dispensed Refills Start Date End Date Status albuterol HFA (PROAIR HFA ; PROVENTIL HFA ; VENTOLIN HFA) 90 mcg/actuation inhaler Inhale 1-2 puffs every 4-6 hours as needed for shortness of breath. 7 g 07/24/2024 07/24/2025 Active Encounters Date Type Department Care Team Description 07/24/2024 8:47 PM EST - 07/24/2024 10:08 PM EST Emergency [facility] Emergency [address] [place] [address] John Alfonso DO Acute bronchitis, unspecified organism (Primary Dx) Discharge Disposition: Home or Self Care from Last 3 Months Social History Tobacco Use Types Packs/Day Years Used Date Smoking Tobacco: Never Smokeless Tobacco: Never Tobacco Cessation:Counseling Given: Not Answered Sex and Gender Information Value Date Recorded Sex Assigned at Not on file Gender Identity Not on file Sexual Orientation Not on file Job Start Date Occupation Industry Not on file Not on file Not on file Obstetrics History Last Filed Vital Signs Vital Sign Reading Time Taken Comments Blood Pressure 160/74 07/24/2024 7:17 PM EST Pulse 85 07/24/2024 7:17 PM EST Temperature 37.7 ??C (99.9 ??F) 07/24/2024 7:17 PM ES T Respiratory Rate 22 07/24/2024 7:17 PM EST Oxygen Saturation 96% 07/24/2024 7:17 PM EST Inhaled Oxygen Concentration - - Weight 109 kg (240 lb) 07/24/2024 7:17 PM EST Height 182.9 cm (6') 07/24/2024 7:17 PM EST Body Mass Index 32.55 07/24/2024 7:17 PM EST Plan of Treatment Health Maintenance Due Date Last Done Comments Pneumococcal Vaccine: Pediatrics (0 to 5 Years) and At-Risk Patients (6 to 64 Years) (1 of 2 - PCV) 02/02/1976 Hepatitis A Vaccines (1 of 2 - Risk 2-dose series) 1989 HIV Screening 08/06/2022 Social Influencers of Health Screening 08/06/2022 Colorectal Cancer Screening: Stool Based Tests (FOBT/FIT) 10/15/2023 10/15/2022 COVID-19 Vaccine ( - 2023-2 5 season) 2024 11/03/2021, 03/23/2021, 02/13/2021 Influenza Vaccine (#1) 2024 , 09/27/2017 Hypertension/CHF/CAD Annual BMP Blood Test 12/19/2024 12/20/2023 Depression Screening 06/30/2025 06/30/2024 DTaP,Tdap,and Td Vaccines (2 - Td or Tdap) 09/27/2027 09/27/2017 Cholesterol Screening (Lipid Panel) 11/13/2028 11/14/2023, 11/14/2023 Hepatitis C Screening Completed 11/14/2023 Zoster Vaccines Completed 11/14/2023, 06/01/2022 Hepatitis B Vaccines Completed 01/02/2024, 11/28/2023, 05/15/2019 HIB Vaccines Aged Out No longer eligi ble based on patient's age to complete this topic HPV Vaccines Aged Out No longer eligi ble based on patient's age to complete this topic IPV Vaccines Aged Out No longer eligi ble based on patient's age to complete this topic MMR Vaccines Aged Out No longer eligi ble based on patient's age to complete this topic Meningococcal ACWY Vaccine Aged Out N o longer eligible based on patient's age to complete this topic RSV Immunization Patients Under 20 months Aged Out No longer eligible b ased on patient's age to complete this topic Varicella Vaccines Aged Out No longer eligible based on patient's age to complete this topic Procedures Procedure Name Priority Date/Time Associated Diagnosis Comments XR CHEST 2 VIEWS STAT 07/24/2024 9:23 PM EST RESPIRATORY VIRUS PANEL MOLECULAR STUDY STAT 07/24/2024 7:15 PM EST from Last 3 Months Results * XR Chest 2 Views (07/24/2024 9:23 PM EST) Anatomical Region Laterality Modality Body Radiographic Chrissie ging 07/25/2024 8:56 AM EST Impressions 07/25/2024 8:58 AM EST No acute pulmonary disease. ??Cardiomegaly. ??No change since 04/17/2023. Code 03610 CT Teleradiology -------- FINAL REPORT -------- Dictated By: Marky Nick Dictated Date: 07/25/2024 08:56 ET Assigned Physician: Marky Nick Reviewed and Electronically Signed By: Marky Nick Signed Date: 07/25/2024 08:58 ET Workstation ID: [id number] Transcribed By: Self Edit Transcribed Date: 07/25/2024 08:56 ET Narrative 07/25/2024 8:58 AM EST HISTORY: The patient is a 54-year-old male with new onset of cough. FINDINGS: PA and lateral radiographs of the chest demonstrate normal appearance of the bony structures. ??The cardiac silhouette is again seen to be enlarged with a cardiothoracic ratio of 0.58, as also demonstrated on the prior study performed 04/17/2023. ??The mediastinal contour is within normal limits. ??The lungs and costophrenic angles are clear. Procedure Note Marky Nick MD - 07/25/2024 HISTORY: The patient is a 54-year-old male with new onset of cough. FINDINGS: PA and lateral radiographs of the chest demonstrate normalappearance of the bony structures. The cardiac silhouette is again seento be enlarged with a cardiothoracic ratio of 0.58, as also demonstratedon the prior study performed 04/17/2023. The mediastinal contour is withinnormal limits. The lungs and costophrenic angles are clear. IMPRESSION: No acute pulmonary disease. Cardiomegaly. No change since 04/17/2023. Code 31550 CT Teleradiology -------- FINAL REPORT -------- Dictated By: Marky Nick Dictated Date: 07/25/2024 08:56 ET Assigned Physician: Marky Nick Reviewed and Electronically Signed By: Marky Nick Signed Date: 07/25/2024 08:58 ET Workstation ID: [id number] Transcribed By: Self Edit Transcribed Date: 07/25/2024 08:56 ET Tripp BOCANEGRA IMG XR PROCEDURES * Respiratory virus panel molecular study (07/24/2024 7:15 PM EST) Adenovirus Detection by PCR Not Detected Not Detected LAB MICROBIOLOGY METHOD 07/24/2024 8:28 PM [facility] Influenza A PCR Not Detected Not Detected LAB MICROBIOLOGY METHOD 07/24/2024 8:28 PM [facility] Influenza B PCR Not Detected Not Detected LAB MICROBIOLOGY METHOD 07/24/2024 8:28 PM [facility] Coronavirus 229E Not Detected Not Detected LAB MICROBIOLOGY METHOD 07/24/2024 8:28 PM [facility] Coronavirus HKU1 Not Detected Not Detected LAB MICROBIOLOGY METHOD 07/24/2024 8:28 PM [facility] Coronavirus OC43 Not Detected Not Detected LAB MICROBIOLOGY METHOD 07/24/2024 8:28 PM [facility] Coronavirus NL63 Not Detected Not Detected LAB MICROBIOLOGY METHOD 07/24/2024 8:28 PM [facility] Parainfluenza Virus 1 Not Detected Not Detected LAB MICROBIOLOGY METHOD 07/24/2024 8:28 PM [facility] Parainfluenza Virus 2 Not Detected Not Detected LAB MICROBIOLOGY METHOD 07/24/2024 8:28 PM [facility] Parainfluenza Virus 3 Not Detected Not Detected LAB MICROBIOLOGY METHOD 07/24/2024 8:28 PM [facility] Parainfluenza Virus 4 Not Detected Not Detected LAB MICROBIOLOGY METHOD 07/24/2024 8:28 PM [facility] RSV PCR Not Detected Not Detected LAB MICROBIOLOGY METHOD 07/24/2024 8:28 PM [facility] Human Metapneumovirus A and B Not Detected Not Detected LAB MICROBIOLOGY METHOD 07/24/2024 8:28 PM [facility] Rhinovirus/Entero virus Not Detected Not Detected LAB MICROBIOLOGY METHOD 07/24/2024 8:28 PM [facility] Bordetella pertussis Not Detected Not Detected LAB MICROBIOLOGY METHOD 07/24/2024 8:28 PM [facility] Bordetella parapertussis Not Detected Not Detected LAB MICROBIOLOGY METHOD 07/24/2024 8:28 PM [facility] Mycoplasma pneumo by PCR Not Detected Not Detected LAB MICROBIOLOGY METHOD 07/24/2024 8:28 PM [facility] Chlamydia pneumoniae Not Detected Not Detected LAB MICROBIOLOGY METHOD 07/24/2024 8:28 PM [facility] SARS COV-2 Not Detected Not Detected LAB MICROBIOLOGY METHOD 07/24/2024 8:28 PM [facility] Swab Both anterior nares / Unknown Non-blood Collection / Unknown 07/24/2024 7:15 PM EST 07/24/2024 7:23 PM EST [facility] - 07/24/2024 8:28 PM EST Testing was performed using the tagWALLETe Respiratory Pathogen PCR Assay. All results must be correlated with the clinical findings. Results should not be used as the sole basis for diagnosis. False Negative results may occur from the presence of sequence variants in the region targeted by the assay or the presence of inhibitors. Results may be affected by concurrent antiviral/antimicrobial therapy or levels of organisms that are below the limit of detection. John Alfonso DO LAB MICROBIOLOGY - G ENERAL ORDERABLES [facility] [address] [place] [address], from Last 3 Months Care Teams Product Coordinator Relationship Specialty Start Date End Date Abel Henderson PA [address] [place] [address] PCP - General 04/25/23
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
[2024-09-26 15:37] LABS: Alanine Aminotransferase 18 U/L (0-40); Albumin Level 3.7 g/dL (3.5-5.0); Alkaline Phosphatase 110 U/L (39-117); Anion Gap 12 (12-20); Aspartate Amino Transferase 42 U/L (5-37); Bilirubin Total 2.2 mg/dL (0.0-1.0); Blood Urea Nitrogen 6 mg/dL (9-16); Calcium 8.7 mg/dL (8.4-10.2); Carbon Dioxide 26 mmol/L (22-29); Chloride 107 mmol/L (96-108); Estimated Glomerular Filt Rate > 60; Glucose Random 94 mg/dL (60-115); Potassium 3.7 mmol/L (3.3-5.1); Sodium 141 mmol/L (135-145); Total Protein 6.8 g/dL (6.5-8.0)
[2024-09-30 13:13] LABS: Alpha Fetoprotein 6.2 ng/mL (<6.1)
== END 2024-09-26 10:24 | disposition home or self-care (01) ==
LOC: HO.LAB 10:23
PROVIDERS: Visit Provider Internal Medicine Gastroenterology
DX: K70.31 Alcoholic cirrhosis of liver with ascites (principal); K75.81 Nonalcoholic steatohepatitis (NASH)
CPT/HCPCS: 36415; 80053; 82105; 85025; 85610; 99212

== ENCOUNTER 2024-09-26 10:23 | Outpatient (AMB) | payer MEDICAID, SELFPAY ==
--- NOTE | 2024-09-26 10:33 | A.OFFVIS_ITS ---
Vital Signs 09/26/24 10:47 Height 5 ft 4 in Weight 272 lb BMI 46.7 BP 162/70 H Blood Pressure Location Lt brachial Position Sitting Pulse 92 Intake Visit Reasons: 4 month follow up Intake Note: Patient 4 month follow up Patient cc: chronic cough, denies any GI issue for today visit. 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 He had abdo pain 1 month prior to index visit, felt stomach full, pain in the ribs pain then gone, after being there for 2 weeks, had imaging as below with cirrhosis at index visit he felt normal, appetite was good, weight stable admitted to nausea, no vomiting he hadn't drank alcohol for 1 month at time of index visit he was drinking 8-10 cans beer daily for 30 yrs or so before this he used cocaine when he was younger LABS: bili 2.5, AST 78, ALT 28, alk phos 182, INR: 1.7 on initila labs MELD Na labs 03/2019--16 on repeat labs, h pylori pos, GOT RX, MELD-NA- 04/2020-- 12 MELD 9-- 11/2020 Imaging and endoscopies: CT 02/01/19- Ct with diverticulsois, cirrhosis, contracted GB. u/s 03/2019- cirrhosis, F2-3 on elastography EGD: 05/2019- small varices grade I u/s 07/2019--cirrhosis, no HCC EGD 05/2020--small varix, nodule at [facility], gastritis, h pylori still seen, chronic inflammation at [facility] u/s 12/2020--no liver leisons, stable INTERIM: doing well mild RUQ discomfort remains off alcohol appetite is good, no melena or rectal bleeding not had US yet EXAM: GENERAL: The patient is well developed and nontoxic. overweight VITAL SIGNS:see workflow HEENT: Nonicteric sclerae, PERRLA, EOMI. Oropharynx clear. Moist mucous membranes. Conjunctivae appear well perfused. No thyroid mass. CHEST: Chest wall is nontender. HEART: Regular rate and rhythm without murmurs. LUNGS: Clear to auscultation bilaterally. ABDOMEN: Soft, positive bowel sounds, nontender, no organomegaly.no flank tenderness--dullness , no obvious thrill SKIN: No rash, no excessive bruising, petechiae, or purpura. mild edema NEUROLOGIC: Cranial nerves II-XII intact without motor/sensory deficit. Assessment & Plan 1/ compensated cirrhosis, likely 2/2 alcohol abuse --now sober, PLAN: 1/ advised on ongoing alcohol abstinence as before, weight loss 2/ hep b vaccine, complete series 3/ EGD for varices screen in 1-2 yrs, no evidence of hepatic encephalopathy--will discuss colonoscopy next visit 4/ u/s for HCC screen q6 months, needs one now-pending 5/ recheck labs today 6/ use amiloride and lasix as doing 7/ avoid nsaids and avoid can use low dose tylenol 8/ might be good candidate for liver transplant program at [facility], recheck MELD PFSH Surgical History H/O colonoscopy History of esophagogastroduodenoscopy (EGD) Hx of hand surgery Family History Mother Diabetes Heart problem Social History Household Members: Significant Other and Children Alcohol intake: former Year quit: 2018 Physical Exam Vital Signs: Last Vital Signs Pulse 92 09/26/24 10:47 BP 162/70 H 09/26/24 10:47 BMI result Body Mass Index 46.7 Assessment & Plan Assessment & Plan (1) Cirrhosis: Code(s): K74.60 - Unspecified cirrhosis of liver Category: Medical Qualifiers: Hepatic cirrhosis type: alcoholic cirrhosis Ascites presence: with ascites Qualified Code(s): K70.31 - Alcoholic cirrhosis of liver with ascites Plan: see above Orders: Orders Comprehensive Met. Panel Today K70.31 - Alcoholic cirrhosis of liver with ascites, K75.81 - Nonalcoholic steatohepatitis (TAYLOR) Alpha Fetoprotein Today K70.31 - Alcoholic cirrhosis of liver with ascites Prothrombin Time INR Today K70.31 - Alcoholic cirrhosis of liver with ascites Complete Blood Count Auto Diff Today K70.31 - Alcoholic cirrhosis of liver with ascites Medications: New azithromycin For 250 mg dose pack: take 500 mg today (day 1), then 250 mg for 4 days (days 2-5) PO 6 tabs 0RF lactulose 20 grams (30 mL) PO BID 3,785 mL 1RF Coding Level of Care Code Est Pt Level 4 (33508) Diagnoses Alcoholic cirrhosis of liver with ascites K70.31 Hepatic cirrhosis type: alcoholic cirrhosis Ascites presence: with ascites
[2024-09-26 10:47] VITALS: BP 162/70; PULSE 92; BMI 46.7
== END 2024-09-26 11:34 | disposition home or self-care (01) ==
PROVIDERS: Visit Provider Internal Medicine Gastroenterology
DX: K70.31 Alcoholic cirrhosis of liver with ascites (principal)
CPT/HCPCS: 99214

== ENCOUNTER 2025-01-19 13:06 | Outpatient (AMB) | payer MEDICAID, SELFPAY ==
--- OUTSIDE RECORDS SUMMARY | 2025-01-19 13:10 | XMS_ITS | Clinical Summary ---
Author Organization [facility] Address [address] [place] [address] Care Team Providers Care Wedding Planning Internship Name Role Phone Samaria Mccullough Primary Care Provider [phone] Source Comments PLEASE NOTE, if this patient [...] 0.65 % nasal sprayIndications :Epistaxis Place 1 Schriever into the nostril(s) as needed for congestion [...] 24 Active omeprazole (PRILOSEC) [address] capsuleIndemely ns:Medication refill TAKE 1 CAPSULE BY MOUTH [...] recurrent major depressive disorder, without psychotic features ([facility]-CMS) Take 1 Tablet by mouth every morning 30 Tablet 1 07/29/20 24 Active Active Problems Problem Noted Date Diagnosed Date Current moderate episode of major depressive disorder (HCC-CMS) 08/20/2024 Gynecomastia, male 04/02/2024 Lumbar disc [...] conditions 02/11/2024 Secondary esophageal varices with bleeding (HCC- CMS) 11/14/2023 Gastroesophageal reflux disease 08/14/2023 Financial difficulties 04/27/2023 Housing problems 04/27/2023 Alcoholic cirrhosis (HCC-CMS) 10/04/2022 Snoring 10/22/2019 Colon cancer screening 10/22/2019 Carpal tunnel syndrome of left wrist 09/04/2018 Overview (09/04/2018): Followed by Dora f/rosi 08/30, plan is for carpel tunnel release [...] Encounters Date Type Department Care Team Description 01/05/2025 Interim Notes [address] [phone] Samaria Mccullough PA 12/23/2024 3:20 PM EDT Office Visit [address] [phone] Samaria Mccullough PA Zayas, Juan Lumbar disc herniation (Primary Dx); Alcoholic cirrhosis of liver without ascites (HCC-CMS); Moderate episode of recurrent major depressive disorder (HCC-CMS); Insomnia, unspecified type 12/04/2024 1:00 PM EDT / Visits [facility] [address] [place] [address] Constantine Farris LCSW Current severe episode of major depressive disorder without psychotic features, unspecified whether recurrent (HCC-CMS) (Primary Dx) from Last 3 Months Immunizations Immunization Administration Dates Next Due Flu, Preservative Free 06/01/2022,09/27/2017 Hep B,adult,adjuvanted (HEPLISAV) 01/02/2024, Pfizer COVID vaccine, COMIRN ATY, yap cap, 12+ 11/03/2021,03/23/2021,02/13/2021 TDAP 09/27/2017 ZOSTER VACCINE, [...] Social Connections Answer Date Recorded Connectedness 1 12/30/2024 Financial Resource Strain Answer Date R ecorded Financial Resource Strain 2 2024 Stress Answer Date Recorded Stress 1 12/30/2024 Physical Activity Answer Date Recorded Physical Activity 0 04/25/2019 Food Insecurity Answer Date Recorded Food 2 12/30/2024 Transportation Needs Answer Date Record ed Transportation 1 12/30/2024 Housing Stability Answer Date Recorded Housing 1 12/30/2024 Safety and Environment Answer Date Karan rded Safety 1 02/11/2024 Utilities Answer Date Recorded Utilities 1 12/30/2024 Employment Answer Date Recorded Stress 0 10/04/2022 Sex and Gender Information Value Date Recorded Sex Assigned at Male 09/27/2017 9:58 AM PST Legal Sex Male 12:18 PM PDT Gender Identity Male 09/27/2017 9:58 AM PST Sexual Orientation Straight 09/27/2017 9: 58 AM PST Last Filed Vital Signs Vital Sign Reading Time Taken Comments Blood Pressure 130/70 12/23/2024 3:23 PM EDT Pulse 98 12/23/2024 3:23 PM EDT Temperature 36.7 ??C (98 ??F) 07/28/2024 2:58 PM EST Respiratory Rate 20 12/23/2024 3:23 PM EDT Oxygen Saturation 98% 12/23/2024 3:23 PM EDT Inhaled Oxygen Concentration - - Weight 122 kg (269 lb) 12/23/2024 3:23 PM EDT Height 162.6 cm (5' 4 ) 12/23/2024 3:23 PM EDT Body Mass Index 46.17 12/23/2024 3:23 PM EDT Plan of Treatment Upcoming Encounters Date Type Department Care Team (Late st Contact Info) Description 02/10/2025 3:15 PM EDT / Visits [facility] [address] [place] [address] Constantine Farris, VP TRANSPORTATION [address] [place] [address] Health Maintenance Due Date Last Done Comments EGD (Upper Endoscopy) 1970 Imm-Hepatitis A (1 of 2 - Ri sk 2-dose series) 1989 Imm-Pneumococcal (1 of 2 - PCV) 1989 CT Colonography 2015 Colonoscopy 2015 Fecal DNA 2015 Flexible Sigmoidoscopy 2015 Colorectal Cancer Screening 10/15/2023 FIT/gFOBT 10/15/2023 10/15/2022, 10/15/2022 [id number] ( season) 2024 11/03/2021, 03/23/2021, 02/13/2021 Imm-Influenza (#1) 2024 06/01/2022, 09/27/2017 Hepatocellular Carcinoma Scr eening (HCC) 06/14/2024 12/14/2023 Annual Wellness (Adult): Ind icated (All Coverage) 11/13/2024 11/14/2023, 10/05/2017 Syphilis Screening 12/19/2024 12/20/2023 Depression Monitoring 03/24/2025 12/23/2024 , 06/30/2024, 02/28/2024, Additional history exists Anxiety Screening 12/23/2025 12/23/2024 Tobacco Screening 12/23/2025 12/23/2024 Lipid Screening 11/13/2026 11/14/2023, 09/28/2017 Diabetes Screening 12/19/2026 12/20/2023, 0 11/14/2023, 08/04/2023, Additional history exists Imm-DTaP/Tdap/Td (2 - Td or Tdap) 09/27/2027 018 HIV Screening Completed 11/14/2023 Hepatitis C Screening Completed 11/14/2023 Imm-Zoster, Recombinant Completed 11/14/2023, 06/01 Imm-Hepatitis B Completed 01/02/2024, 11/02, 05/15/2019 Alcohol and Drug Screen Completed 12/24/19, 02/28/2024, 02/07/2024, Additional history exists Procedures Procedure Name Priority Date/Time Associated Diagnosis Comments OTHER ORDERS SCANNED DOCUMENT 01/08/2025 3:00 AM EDT OTHER ORDERS SCANNED DOCUMENT 12/23/2024 3:00 AM EDT RPR (DIAGNOSIS) WITH REFLEX TO TITER AND [...] Recently Relevant to Health Maintenance Results * OTHER ORDERS SCANNED DOCUMENT (01/08/2025 3:00 AM EDT) Only the most recent of2 resultswithin the time period is included. 01/08/2025 3:00 AM EDT us Samaria BOCANEGRA SCAN OTHER ORDERS Final Result * RPR (DIAGNOSIS) WITH REFLEX TO TITER AND CONFIRMATORY TESTING (12/20/2023 11:32 AM EDT) RPR (DX) W/REFL TITER AND CONFIRMATORY TESTING NON-REACT ESTRADA NON-REACT ESTRADA [facility] Comment: No laboratory evidence of syphilis. If recent exposure is suspected, submit a new sample in 2-4 weeks. Serum Blood / Unknown 12/20/2023 1 1:32 AM EDT 12/20/2023 11:32 AM EDT Narrative [facility] - 12/21/2023 10:43 AM EDT FASTING:NO us Samaria BOCANEGRA LAB - BLOOD DRAW Final Result [facility] [address] [place] [address], [facility] [address] [place] [phone] * (ABNORMAL) COMPREHENSIVE METABOLIC PANEL (12/20/2023 11:32 AM EDT) GLUCOSE 87 65 - 139 mg/dL [facility] Comment: ?Non-fasting reference interval UREA NITROGEN (BUN) 8 7 - 25 mg/dL [facility] CREATININE (blood) 0.60(L) 0.70 - 1.30 mg/dL [facility] EGFR 115 > OR = 60 mL/min/1. 73m2 [facility] BUN/CREATININE RATIO 13 6 - 22 (calc) [facility] SODIUM 135 135 - 146 mmol/L [facility] POTASSIUM 4.2 3.5 - 5.3 mmol/L [facility] CHLORIDE 105 98 - 110 mmol/L [facility] CARBON DIOXIDE 27 20 - 32 mmol/L [facility] CALCIUM 8.7 8.6 - 10.3 mg/dL [facility] PROTEIN, TOTAL 6.5 6.1 - 8.1 g/dL [facility] ALBUMIN 3.5(L) 3.6 - 5.1 g/dL [facility] GLOBULIN 3.0 1.9 - 3.7 g/dL (calc) [facility] ALBUMIN/GLOBULI N RATIO 1.2 1.0 - 2.5 (calc) [facility] BILIRUBIN, TOTAL 1.9(H) 0.2 - 1.2 mg/dL [facility] ALKALINE PHOSPHATASE 135 35 - 144 U/L [facility] AST 41(H) 10 - 35 U/L [facility] ALT 19 9 - 46 U/L [facility] Blood Blood / Unknown 12/20/2023 1 1:32 AM EDT 12/20/2023 11:32 AM EDT Narrative [facility] - 12/21/2023 10:43 AM EDT FASTING:NO us Samaria BOCANEGRA LAB - BLOOD DRAW Edited Result - Final [facility] [address] [address], [place] [facility] [address] [address] * US LIVER (12/14/2023 3:00 AM EDT) 12/14/2023 3:00 AM EDT us Abel Henderson PA-C IMG ULTRASOUND Edited Resul t - Final [facility] Corporate Office [address], [address] [place] [address], [place] [phone] * HEPATITIS C AB W/RFLX HCV RNA, QT, RT PCR (11/14/2023 10:15 AM EDT) HEPATITIS C ANTIBODY NON-REACT ESTRADA NON-REACT ESTRADA [facility] Comment: HCV antibody was non-reactive. There is no laboratory evidence of HCV infection. In most cases, no further action is required. However, if recent HCV exposure is suspected, a test for HCV RNA (test code 31934) is suggested. For additional information please refer to http://Movie Mouth.[employer]/faq/GJG21c4 (This link is being provided for informational/ educational purposes only.) Blood Blood / Unknown 11/14/2023 1 0:15 AM EDT 11/14/2023 10:16 AM EDT Narrative [facility] - 11/15/2023 8:45 AM EDT FASTING:NO PATIENT REFUSED SOME TESTING; PATIENT ENCOURAGED TO RETURN. us Abel Henderson PA-C LAB - BLOOD DRAW Final Resul t [facility] [address] [place] [address], [employer] [address] [address] * HIV 1/2 AG & AB W/RFLX (4TH GEN) (11/14/2023 10:15 AM EDT) Pathologist [facility] HIV AG/AB, 4TH GEN NON-REAC TIVE NON-REAC TIVE [employer] [facility] Comment: HIV-1 antigen and HIV-1/HIV-2 antibodies were [...] ?? For additional information please refer to http://education.[employer]/faq/AFA169 (This link is being provided for informational/ educational purposes only.) The performance of this assay has not been clinically validated in patients less than 2 years old. Blood Blood / Unknown 11/14/2023 1 0:15 AM EDT 11/14/2023 10:16 AM EDT Narrative [facility] - 11/15/2023 8:45 AM EDT FASTING:NO PATIENT REFUSED SOME TESTING; PATIENT ENCOURAGED TO RETURN. us Abel Henderson PA-C LAB - BLOOD DRAW Final Resul t [facility] [address] [address], [employer] [address] [address] * (ABNORMAL) LIPID PANEL (11/14/2023 10:15 AM EDT) [facility] CHOLESTEROL, TOTAL 81 <200 mg/dL [facility] HDL CHOLESTEROL 25(L) > OR = 40 mg/dL [facility] TRIGLYCERIDES 64 <150 mg/dL [facility] LDL-CHOLESTEROL 42 99 mg/dL (calc) [facility] Comment: Reference range: <100 Desirable range <100 mg/dL for primary prevention; ?? <70 mg/dL for patients with CHD or diabetic patients with > or = 2 CHD risk factors. LDL-C is now calculated using the Javier-Vincent calculation, which is a validated novel method providing better accuracy than the Friedewald equation in the estimation of LDL-C. Javier GARNICA et al. GITA. 2013;310(19): 2174-5923 (http://education.OpenZine/faq/DGT412) CHOL/HDLC RATIO 3.2 <5.0 (calc) [facility] NON-HDL CHOLESTEROL 56 <130 mg/dL (calc) [facility] Comment: For patients with diabetes plus 1 major ASCVD risk factor, treating to a non-HDL-C goal of <100 mg/dL (LDL-C of <70 mg/dL) is considered a therapeutic option. Blood Blood / Unknown 11/14/2023 1 0:15 AM EDT 11/14/2023 10:16 AM EDT Narrative [facility] - 11/15/2023 8:45 AM EDT FASTING:NO PATIENT REFUSED SOME TESTING; PATIENT ENCOURAGED TO RETURN. us Abel Henderson PA-C LAB - BLOOD DRAW Final Resul t Performing Organization Address [facility] de Phone Number [facility] [address] [place] [phone], [employer] [address] [address] * FECAL GLOBIN BY IMMUNOCHEMISTRY (FIT) (10/15/2022 7:00 PM EST) FECAL GLOBIN BY IMMUNOCHEMISTRY See Note [facility] Comment: ??FECAL GLOBIN BY IMMUNOCHEMISTRY ?Micro Number: ?[id number] ??Test Status: ? Final ??Specimen Source: ?? Insure (tm) fobt test card ??Specimen Quality: ??Adequate ??Fecal Globin: ?Not Detected 10/15/2022 7:00 PM EST 10/17/2022 11:35 PM EST us Abel Henderson PA-C LAB BODY FLUIDS AND STOOLS A MBULATORY Final Result Performing Organization Address [facility] de Phone Number [facility] [address] [place] [address], [employer] [address] [place] [address] from Last 3 Months or Most Recently Relevant to Health Maintenance Insurance [employer] D[employer]AL [facility] D[facility] [address] [employer] [facility] [employer] Care Teams Wedding Planning Internship Relationship Specialty Start Date End Date Samaria Mccullough PA [address] [place] [address] PCP - General Primary Care 12/18/23
--- OUTSIDE RECORDS SUMMARY | 2025-01-19 13:10 | XMS_ITS | Clinical Summary ---
Author Organization [facility] Address [address] [place] [address] Phone Care Team Providers Care Counterintelligence Specialist Name Role Phone Abel Henderson Primary Care Provider [phone] Allergies No known active allergies Medications albuterol HFA (PROAIR HFA ; PROVENTIL HFA ; VENTOLIN HFA) 90 mcg/actuation inhaler Inhale 1-2 puffs every 4-6 hours as needed for shortness of breath. 7 g 4 07/24/20 25 Active Social History Tobacco Use Types Packs/Day Years Used Date Smoking Tobacco: Never Smokeless Tobacco: Never Tobacco Cessation:Counseling Given: Not Answered Sex and Gender Information Value Date Recorded Sex Assigned at Not on file Legal Sex Male 10:54 PM EST Gender Identity Not on file Sexual Orientation Not on file Obstetrics History Last Filed [...] Health Maintenance Due Date Last Done Comments Hepatitis A Vaccines (1 of 2 - Risk 2-dose series) 1989 Pneumococcal Vaccine: 50+ Years (1 of 2 - PCV) 1989 Pneumococcal Vaccine: Pediatrics (0 to 5 Years) and At-Risk Patients (6 to 64 Years) (1 of 2 - PCV) 1989 HIV Screening 08/06/2022 Social Influencers of Health Screening 08/06/2022 Colorectal Cancer Screening: Stool Based Tests (FOBT/FIT) 10/15/2023 10/15/2022 COVID-19 Vaccine (4 - 2023-2 5 season) 2024 11/03/2021, 03/23/2021, 02/13/2021 Hypertension/CHF/CAD Annual BMP Blood Test 12/19/2024 12/20/2023 Influenza Vaccine (Season Ended) 2025 06/01/2022, 09/27/2017 Depression Screening 06/30/2025 06/30/2024 DTaP,Tdap,and Td Vaccines [...] patient's age to complete this topic Meningococcal B Vaccine Aged Out No l onger eligible based on patient's age to complete this topic RSV Immunization Patients Under 20 months Aged Out No longer eligible b ased on patient's age to complete this topic Varicella Vaccines Aged Out No longer eligible based on patient's age to complete this topic Insurance MEDICAID - [place] Care Teams Counterintelligence Specialist Relationship Specialty Start Date End Date Abel Henderson PA [address] [place] [address] PCP - General 04/25/23
--- NOTE | 2025-01-19 13:12 | MHC.OFFVIS ---
Vital Signs 01/19/25 13:19 Height 5 ft 4 in Weight 268 lb 15.423 oz BMI 46.2 BP 148/70 H Blood Pressure Location Lt brachial Position Sitting Pulse 80 Intake Visit Reasons: 4 mo f/u Intake Note: Leroy presents in the office as a 4 month follow up. CC: HE state she is having issues with sleeping at night but denies any issues with his stomach. 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 u/s 03/2019- cirrhosis, F2-3 on elastography EGD: 05/2019- small varices grade I u/s 07/2019--cirrhosis, no HCC EGD 05/2020--small varix, nodule at [facility], gastritis, h pylori still seen, chronic inflammation at [facility] u/s 12/2020--no liver leisons, stable INTERIM: He has poor sleep he has nasal congestion denies sneezing he denies itchy eyes or sneezing no nasal d/c but he does have episodic epistaxis more frequent no n/v denies alcohol or drug use EXAM: GENERAL: The patient is well developed and nontoxic. overweight VITAL SIGNS:see workflow HEENT: Nonicteric sclerae, PERRLA, EOMI. Oropharynx clear. Moist mucous membranes. Conjunctivae appear well perfused. No thyroid mass. CHEST: Chest wall is nontender. HEART: Regular rate and rhythm without murmurs. LUNGS: Clear to auscultation bilaterally. ABDOMEN: Soft, positive bowel sounds, nontender, no organomegaly.no flank tenderness--dullness , no obvious thrill SKIN: No rash, no excessive bruising, petechiae, or purpura. mild edema NEUROLOGIC: Cranial nerves II-XII intact without motor/sensory deficit. Assessment & Plan 1/ compensated cirrhosis, likely 2/2 alcohol abuse --now sober, 2/ obesity PLAN: 1/ advised on ongoing alcohol abstinence as before, weight loss 2/ nose bleeds 2/2 low plts and INR --advised to avoid dryness and picking nose, can use saline spray --will give some Vit K 5 mg for few weeks as well 3/ EGD for varices screen in 1-2 yrs, no evidence of hepatic encephalopathy--will discuss colonoscopy at future date 4/ u/s for HCC screen q6 months, needs one now-pending--overdue 5/ recheck labs next visit 6/ use amiloride and lasix as doing 7/ avoid nsaids and avoid can use low dose tylenol 8/ might be good candidate for liver transplant program at [facility], MELD borderline right now at 14 9/ may benefit from weight loss medication, if cant lose weight thru diet and lifestyle changes PFSH Surgical History H/O colonoscopy History of esophagogastroduodenoscopy (EGD) Hx of hand surgery Family History Mother Diabetes Heart problem Social History Household Members: Significant Other and Children Alcohol intake: former Year quit: 2018 Physical Exam Vital Signs: Last Vital Signs Pulse 80 01/19/25 13:19 BP 148/70 H 01/19/25 13:19 BMI result Body Mass Index 46.2 Assessment & Plan Assessment & Plan (1) Cirrhosis: Code(s): K74.60 - Unspecified cirrhosis of liver Category: Medical Qualifiers: Hepatic cirrhosis type: alcoholic cirrhosis Ascites presence: with ascites Qualified Code(s): K70.31 - Alcoholic cirrhosis of liver with ascites Plan: as above Medications: New sodium chloride 0.65% (Saline Nasal) 2 sprays intranasal QID PRN 44 mL 3RF dry nasal passages phytonadione (vitamin K1) 5 mg PO DAILY 14 tabs 0RF Coding Level of Care Code Est Pt Level 4 (41272) Diagnoses Alcoholic cirrhosis of liver with ascites K70.31 Hepatic cirrhosis type: alcoholic cirrhosis Ascites presence: with ascites
[2025-01-19 13:19] VITALS: BP 148/70; PULSE 80; BMI 46.2
== END 2025-01-19 13:53 | disposition home or self-care (01) ==
LOC: HO.HGI 13:07
PROVIDERS: Visit Provider Internal Medicine Gastroenterology
DX: K70.31 Alcoholic cirrhosis of liver with ascites (principal)
CPT/HCPCS: 99214

== ENCOUNTER → 2025-01-19 13:06 | Outpatient (BNVA) | payer MEDICAID, SELFPAY | PROVIDERS: Visit Provider Internal Medicine Gastroenterology | DX: K70.31 Alcoholic cirrhosis of liver with ascites (principal) | CPT/HCPCS: 99212 ==

== ENCOUNTER 2025-03-03 11:04 | Outpatient (REF) | payer MEDICAID, SELFPAY ==
--- NOTE | ~2025-03-03 | US_ITS ---
EXAMINATION: US ABDOMEN COMPLETE WITH LIVER ELASTOGRAPHY HISTORY: K74.60 - Unspecified cirrhosis of liver TECHNIQUE: Real-time grayscale ultrasound imaging of the abdomen was performed and images were reviewed. COMPARISON: Comparison is made with the prior examination dated 12/15/2020. FINDINGS: Liver: The right lobe of the liver measures 15.1 cm in size. The left lobe of the liver measures 13.4 cm in size. The liver demonstrates a nodular contour suggestive with cirrhosis. There is a recannulized paraumbilical vein. No focal mass or intrahepatic biliary ductal dilatation is identified. There is normal hepatopedal flow in the portal vein. Ultrasound elastography of the liver was performed with 10 separate measurements of the liver parenchyma with the patient in the supine position. Measurements were obtained approximately 2 cm below Demetris's capsule and perpendicular to the capsule. The median shear wave velocity is 1.46 m/s (previously 1.59 m/s). The interquartile range/median (IQR/median) is 0.10. Gallbladder and biliary tree: The gallbladder is unremarkable, without evidence of calculi, wall thickening, or pericholecystic fluid. There is no sonographic Nuno sign. The common bile duct is normal in caliber measuring 5 mm. Kidneys: The right kidney measures 13.0 cm in length. The left kidney measures 13.7 cm in length. The kidneys are unremarkable, without evidence of masses, hydronephrosis, or calculi. Pancreas: The pancreatic head, neck, and body are unremarkable. The pancreatic tail is obscured by bowel gas. Spleen: The spleen is enlarged, measuring 21.4 cm in length. Abdominal aorta and inferior vena cava: The visualized portions of the abdominal aorta and inferior vena cava are normal in caliber. There is no free fluid in the abdomen. US/US abdomen comp w elastography IMPRESSION: Cirrhosis of the liver and splenomegaly. The median shear wave velocity in the liver is 1.46 m/s, corresponding to a median liver stiffness of 6.57 kPa. The IQR/median value is 0.10. This is indicative of a quality data set. Findings are indicative of a low elastography value which rules out advanced chronic liver disease in asymptomatic patients. REFERENCE: Society of Radiologists in Ultrasound Liver Stiffness Thresholds (2020): LIVER STIFFNESS THRESHOLDS: *Shear wave velocity less than 1.3 m/s (Liver Stiffness equal or less than 5 kPa): High probability of being normal. *Shear wave velocity less than 1.7 m/s (Liver Stiffness less than 9 kPa): In the absence of other known clinical signs, rules out compensated advanced chronic liver disease. *Shear wave velocity between 1.7-2.1 m/s (Liver Stiffness 9-13 kPa): Suggestive of compensated advanced chronic liver disease but need further test for confirmation. *Shear wave velocity between 2.1-2.4 m/s (Liver Stiffness 13-17 kPa): Rules in compensated advanced chronic liver disease. *Shear wave velocity greater than 2.4 m/s (Liver Stiffness over 17 kPa): Suggestive of clinically significant portal hypertension. QUALITY OF DATA SET: *IQR/Median value equal or less than 0.15 implies a quality data set. *IQR/Median value over 0.15 implies a poor quality data set. SIGNIFICANT CHANGE FROM PRIOR EXAM: Significant change if liver stiffness measurement is 10% or greater from prior exam. OTHER CONSIDERATIONS: The stage of liver fibrosis may be overestimated in the setting of acute hepatitis, liver inflammation, elevated liver function tests, hepatic vascular congestion, obstructive cholestasis, non-fasting state, and infiltrative diseases such as amyloidosis and lymphoma. In some patients with NAFLD, the liver stiffness thresholds for compensated advanced chronic liver disease may be lower. In causes other than viral hepatitis and NAFLD, liver stiffness thresholds are not well established. Electronically signed by: Aristides Powers MD 03/03/2025 12:31 PM EDT
--- OUTSIDE RECORDS SUMMARY | 2025-03-03 12:18 | XMS_ITS | Clinical Summary ---
Author Organization [facility] Address [address] [place] [address] Phone Care Team Providers Care Hot Water Heater Installer Name Role Phone Abel Henderson Primary Care Provider [phone] Allergies No known active allergies Medications albuterol [...] 85 07/24/2024 7:17 PM EST Temperature 37.7 C (99.9 F) 07/24/2024 7:17 PM EST Respiratory Rate 22 07/24/2024 7:17 PM EST [...] 1989 Pneumococcal Vaccine: 50+ Years (1 of 1 - PCV) 02/02/2020 HIV Screening 08/06/2022 Social Influencers of Health Screening 08/06/2022 Colorectal Cancer Screening: Stool Based Tests (FOBT/FIT) 10/15/2023 10/15/2022 COVID-19 Vaccine (4 - 2023-2 5 season) 2024 11/03/2021, 03/23/2021, 02/13/2021 Hypertension/CHF/CAD Annual BMP Blood Test 12/19/2024 12/20/2023 Influenza Vaccine (#1) 2025 , 09/27/2017 Depression Screening 06/30/2025 06/30/2024 DTaP,Tdap,and Td [...] on patient's age to complete this topic Pneumococcal Vaccine: Pediatrics (0 to 5 Years) and At-Risk Patients (6 to 64 Years) Aged Out No longer eligible b ased on patient's age to complete this topic RSV Immunization Patients Under 20 months Aged Out No longer eligible b ased on patient's age to complete this topic Varicella Vaccines Aged Out No longer eligible based on patient's age to complete this topic Insurance MEDICAID - [place] Care Teams Hot Water Heater Installer Relationship Specialty Start Date End Date Abel Henderson PA [address] [place] [phone] PCP - General 04/25/23
--- OUTSIDE RECORDS SUMMARY | 2025-03-03 12:18 | XMS_ITS | Clinical Summary ---
Author Organization [facility] Address [address] [place] [address] Care Team Providers Care Bookmobile Librarian Name Role Phone Samaria Mccullough Primary Care Provider Source Comments PLEASE NOTE, if this patient [...] 0.65 % nasal sprayIndications :Epistaxis Place 1 [place] into the nostril(s) as needed for congestion [...] 24 Active omeprazole (PRILOSEC) [address] Viri ns:Medication refill TAKE 1 CAPSULE BY MOUTH [...] tabletIndication s:Alcoholic cirrhosis, unspecified whether ascites present (CMS & HHS-HCC),Seconda ry esophageal varices with bleeding (CMS & HHS-HCC) Take 1 Tablet by mouth daily 90 [...] recurrent major depressive disorder, without psychotic features (CMS & HHS-HCC) Take 1 Tablet by mouth every morning 30 Tablet 1 07/29/20 24 Active Active Problems Problem Noted Date Diagnosed Date Current moderate episode of major depressive disorder (CMS & HHS-HCC) 08/20/2024 Gynecomastia, male 04/02/2024 Lumbar disc herniation [...] conditions 02/11/2024 Secondary esophageal varices with bleeding ([facility]) 11/14/2023 Gastroesophageal reflux disease 08/14/2023 Financial difficulties 04/27/2023 Housing problems 04/27/2023 Alcoholic cirrhosis ([facility]) 10/04/2022 Snoring 10/22/2019 Colon cancer screening 10/22/2019 [...] Encounters Date Type Department Care Team Description 02/12/2025 9:40 AM EDT Office Visit [facility] [address] [place] [phone] [place] PA-C Martinez, Celestia 02/10/2025 3:15 PM EDT / Visits [facility] [address] [place] [address] Constantine Farris LCSW 01/05/2025 Interim Notes [address] [phone] Samaria Mccullough PA 12/23/2024 3:20 PM EDT Office Visit [address] [phone] Samaria Mccullough PA Zayas, Juan 12/04/2024 1:00 PM EDT / [facility] [address] [place] [address] Constantine Farris LCSW from Last 3 Months Immunizations Immunization Administration [...] November 2022. Social Connections Answer Date Recorded How often do you feel lonely or isolated from th ose around you? 1 12/30/2024 Financial Resource Strain Answer Date R ecorded Hard to pay for: Food 2 12/30/2024 Stress Answer Date Recorded Do you feel these kinds of stress these days? 1 12/30/2024 Physical Activity Answer Date Recorded Physical Activity 0 04/25/2019 Food Insecurity Answer Date Recorded Hard to pay for: Food 2 12/30/2024 Transportation Needs Answer Date Record ed Hard to pay for: Transportation 1 12/30/2024 Housing Stability Answer Date Recorded Hard to pay for: Rent/Mortgage payment 1 12/30/2024 Safety and Environment Answer Date Karan rded Safety 1 02/11/2024 Utilities Answer Date Recorded Hard to pay for: Utilities 1 12/30 Employment Answer Date Recorded Stress 0 10/04/2022 Sex and Gender Information Value Date Recorded Sex Assigned at Male 09/27/2017 9:58 AM PST Legal Sex Male 12:18 PM PDT Gender Identity Male 09/27/2017 9:58 AM PST Sexual Orientation Straight 09/27/2017 9: 58 AM PST Last Filed Vital Signs Vital Sign Reading Time Taken Comments Blood Pressure 168/79 02/12/2025 8:48 AM EDT Pulse 76 02/12/2025 8:48 AM EDT Temperature 36.7 C (98.1 F) 02/12/2025 8:48 AM EDT Respiratory Rate 20 02/12/2025 8:48 AM EDT Oxygen Saturation 98% 12/23/2024 3:23 PM EDT Inhaled Oxygen Concentration - - Weight 120.7 kg (266 lb) 02/12/2025 8:48 AM EDT Height 162.6 cm (5' 4 ) 02/12/2025 8:48 AM EDT Body Mass Index 45.66 02/12/2025 8:48 AM EDT Plan of Treatment Upcoming Encounters Date Type Department Care Team (Late st Contact Info) Description 03/05/2025 1:45 PM EDT / [facility] [address] [place] [address] Constantine Farris, INSIDE SALES ADMINISTRATOR [address] [place] [address] Health Maintenance Due Date Last Done Comments EGD (Upper Endoscopy) 1970 Imm-Hepatitis A (1 of 2 - Ri sk 2-dose series) 1989 Imm-Pneumococcal 50+ (1 of 2 - PCV) 1989 CT Colonography 2015 Colonoscopy 2015 Fecal DNA 2015 Flexible Sigmoidoscopy 2015 Colorectal Cancer Screening 10/15/2023 FIT/gFOBT 10/15/2023 10/15/2022, 10/15/2022 [id number] ( season) 2024 11/03/2021, 03/23/2021, 02/13/2021 Hepatocellular Carcinoma Scr eening (HCC) 06/14/2024 12/14/2023 Annual Wellness (Adult): Ind icated (All Coverage) 11/13/2024 11/14/2023, 10/05/2017 Syphilis Screening 12/19/2024 12/20/2023 Depression Monitoring 03/24/2025 12/23/2024 , 06/30/2024, 02/28/2024, Additional history exists Imm-Influenza (Season Ended) 2025 06/01/2022, 09/27/2017 Anxiety Screening 12/23/2025 12/23/2024 Tobacco Screening 12/23/2025 [...] EDT Alcoholic cirrhosis, unspecified whether ascites present ([facility]) HIV 1/2 AG & AB W/RFLX (4TH [...] AND CONFIRMATORY TESTING NON-REACT ESTRADA NON-REACT ESTRADA [facility] Comment: No laboratory evidence of syphilis. If recent exposure is suspected, submit a new sample in 2-4 weeks. Serum Blood / Unknown 12/20/2023 1 1:32 AM EDT 12/20/2023 11:32 AM EDT Narrative [facility] - 12/21/2023 10:43 AM EDT FASTING:NO us Samaria BOCANEGRA LAB - BLOOD DRAW Final Result [facility] [address] [address], [facility] [address] [address] * (ABNORMAL) COMPREHENSIVE METABOLIC PANEL (12/20/2023 11:32 AM EDT) GLUCOSE 87 65 - 139 mg/dL [facility] Comment: Non-fasting reference interval UREA NITROGEN (BUN) 8 7 - 25 mg/dL [facility] CREATININE (blood) 0.60(L) 0.70 - 1.30 mg/dL [facility] EGFR 115 > OR = 60 mL/min/1. 73m2 [facility] BUN/CREATININE RATIO 13 6 - 22 (calc) [facility] SODIUM 135 135 - 146 mmol/L [facility] POTASSIUM 4.2 3.5 - 5.3 mmol/L [facility] CHLORIDE 105 98 - 110 mmol/L [facility] CARBON DIOXIDE 27 20 - 32 mmol/L [facility] CALCIUM 8.7 8.6 - 10.3 mg/dL [facility] PROTEIN, TOTAL 6.5 6.1 - 8.1 g/dL [facility] ALBUMIN 3.5(L) 3.6 - 5.1 g/dL [facility] GLOBULIN 3.0 1.9 - 3.7 g/dL (calc) [facility] ALBUMIN/GLOBULI N RATIO 1.2 1.0 - 2.5 (calc) [facility] BILIRUBIN, TOTAL 1.9(H) 0.2 - 1.2 mg/dL [facility] ALKALINE PHOSPHATASE 135 35 - 144 U/L [facility] AST 41(H) 10 - 35 U/L [facility] ALT 19 9 - 46 U/L [facility] Blood Blood / Unknown 12/20/2023 1 1:32 AM EDT 12/20/2023 11:32 AM EDT Narrative [facility] - 12/21/2023 10:43 AM EDT FASTING:NO us Samaria BOCANEGRA LAB - BLOOD DRAW Edited Result - Final [facility] [address] [address], [facility] [address] [address] * US LIVER (12/14/2023 3:00 AM EDT) 12/14/2023 3:00 AM EDT us Abel Henderson PA-C IMG ULTRASOUND Edited Resul t - Final Performing Organization Address City/[facility] Co de Phone Number [facility] Corporate Office [address], [address] [place] [address], [place] [phone] * HEPATITIS C AB W/RFLX HCV RNA, QT, RT PCR (11/14/2023 10:15 AM EDT) HEPATITIS C ANTIBODY NON-REACT ESTRADA NON-REACT ESTRADA [facility] Comment: HCV antibody was non-reactive. There is no laboratory evidence of HCV infection. In most cases, no further action is required. However, if recent HCV exposure is suspected, a test for HCV RNA (test code 23090) is suggested. For additional information please refer to http://education.[employer]faq/XNM17g8 (This link is being provided for informational/ educational purposes only.) Blood Blood / Unknown 11/14/2023 1 0:15 AM EDT 11/14/2023 10:16 AM EDT Narrative [facility] - 11/15/2023 8:45 AM EDT FASTING:NO PATIENT REFUSED SOME TESTING; PATIENT ENCOURAGED TO RETURN. us Abel Henderson PA-C LAB - BLOOD DRAW Final Resul t Performing Organization Address City/[facility]/ZIP Co de Phone Number [facility] [address] [address], [facility] [address] [address] * HIV 1/2 AG & AB W/RFLX (4TH GEN) (11/14/2023 10:15 AM EDT) HIV AG/AB, 4TH GEN NON-REAC TIVE NON-REAC TIVE [employer] [facility] Comment: HIV-1 antigen and HIV-1/HIV-2 antibodies were not detected. There is no laboratory evidence of HIV infection. PLEASE NOTE: This information has been disclosed to you from records whose confidentiality may be protected by state law. If your state requires such protection, then the state law prohibits you from making any further disclosure of the information without the specific written consent of the person to whom it pertains, or as otherwise permitted by law. A general authorization for the release of medical or other information is NOT sufficient for this purpose. For additional information please refer to http://Withings.[employer]faq/IEM465 (This link is being provided for informational/ educational purposes only.) The performance of this assay has not been clinically validated in patients less than 2 years old. Blood Blood / Unknown 11/14/2023 1 0:15 AM EDT 11/14/2023 10:16 AM EDT Narrative [employer] - 11/15/2023 8:45 AM EDT FASTING:NO PATIENT REFUSED SOME TESTING; PATIENT ENCOURAGED TO RETURN. us Abel Henderson PA-C LAB - BLOOD DRAW Final Resul t [employer] [facility] [address] [place] [address], [employer] [address] [address] * (ABNORMAL) LIPID PANEL (11/14/2023 10:15 AM EDT) [facility] Signature CHOLESTEROL, TOTAL 81 <200 mg/dL [employer] [facility] HDL CHOLESTEROL 25(L) > OR = 40 mg/dL [employer] [facility] TRIGLYCERIDES 64 <150 mg/dL [facility] LDL-CHOLESTEROL 42 99 mg/dL (calc) [facility] Comment: Reference range: <100 Desirable range <100 mg/dL for primary prevention; <70 mg/dL for patients with CHD or diabetic patients with > or = 2 CHD risk factors. LDL-C is now calculated using the Anton calculation, which is a validated novel method providing better accuracy than the Friedewald equation in the estimation of LDL-C. Javier GARNICA et al. GITA. 2013;310(19): 3689-5582 (http://education.[employer]/faq/TFY000) CHOL/HDLC RATIO 3.2 <5.0 (calc) [facility] NON-HDL CHOLESTEROL 56 <130 mg/dL (calc) [facility] Comment: For patients with diabetes plus 1 major ASCVD risk factor, treating to a non-HDL-C goal of <100 mg/dL (LDL-C of <70 mg/dL) is considered a therapeutic option. Blood Blood / Unknown 11/14/2023 1 0:15 AM EDT 11/14/2023 10:16 AM EDT Narrative [facility] [employer] - 11/15/2023 8:45 AM EDT FASTING:NO PATIENT REFUSED SOME TESTING; PATIENT ENCOURAGED TO RETURN. us Abel Henderson PA-C LAB - BLOOD DRAW Final Resul t Performing Organization Address [facility] Co de Phone Number [employer] [address] [address], [employer] [address] [address] * FECAL GLOBIN BY IMMUNOCHEMISTRY (FIT) (10/15/2022 7:00 PM EST) FECAL GLOBIN BY IMMUNOCHEMISTRY See Note [employer] [facility] Comment: FECAL GLOBIN BY IMMUNOCHEMISTRY Micro Number: [id number] Test Status: Final Specimen Source: Insure (tm) fobt test card Specimen Quality: Adequate Fecal Globin: Not Detected 10/15/2022 7:00 PM EST 10/17/2022 11:35 PM EST us Abel Henderson PA-C LAB BODY FLUIDS AND STOOLS A MBULATORY Final Result Performing Organization Address [facility] Co de Phone Number [employer] [address] [address], [employer] [address] ([address] [address] from Last 3 Months or Most Recently Relevant to Health Maintenance Insurance [employer] [facility] [place] [address] [employer] [facility] Care Teams Bookmobile Librarian Relationship Specialty Start Date End Date Samaria Mccullough PA [facility] [place] [address] PCP - General Primary Care 12/18/23
== END 2025-03-03 11:05 | disposition home or self-care (01) ==
LOC: HO.US 11:04
PROVIDERS: Visit Provider Internal Medicine Gastroenterology
DX: K74.60 Unspecified cirrhosis of liver (principal)
CPT/HCPCS: 76700; 76981

== ENCOUNTER → 2025-03-03 11:05 | Outpatient (BNV) | payer MEDICAID, SELFPAY | PROVIDERS: Visit Provider Radiology Diagnostic Radiology | DX: K74.60 Unspecified cirrhosis of liver (principal); R16.1 Splenomegaly, not elsewhere classified | CPT/HCPCS: 76700; 76981 ==

== ENCOUNTER 2025-06-01 13:05 | Outpatient (AMB) | payer MEDICAID, SELFPAY ==
[2025-06-01 13:21] VITALS: BP 130/60; PULSE 80; BMI 45.9
--- NOTE | 2025-06-01 13:21 | A.OFFVIS_ITS ---
Vital Signs 06/01/25 13:21 Height 5 ft 4 in Weight 267 lb 3.204 oz BMI 45.9 BP 130/60 Blood Pressure Location Rt brachial Position Sitting Pulse 80 Intake Visit Reasons: 4 mo f/u Intake Note: Leroy presents to in office follow up of cirrhosis. CC: Per patient's the patient has nose bleed almost every day. Patient is unsure on what medications he is taking and states that he needs refill on all medication. 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 u/s 03/2019- cirrhosis, F2-3 on elastography EGD: 05/2019- small varices grade I u/s 07/2019--cirrhosis, no HCC EGD 05/2020--small varix, nodule at [facility], gastritis, h pylori still seen, chronic inflammation at [facility] u/s 12/2020--no liver leisons, stable INTERIM: He has poor sleep he has nasal congestion denies sneezing he denies itchy eyes or sneezing no nasal d/c but he does have episodic epistaxis more frequent no n/v denies alcohol or drug use EXAM: GENERAL: The patient is well developed and nontoxic. overweight VITAL SIGNS:see workflow HEENT: Nonicteric sclerae, PERRLA, EOMI. Oropharynx clear. Moist mucous membranes. Conjunctivae appear well perfused. No thyroid mass. CHEST: Chest wall is nontender. HEART: Regular rate and rhythm without murmurs. LUNGS: Clear to auscultation bilaterally. ABDOMEN: Soft, positive bowel sounds, nontender, no organomegaly.no flank tenderness--dullness , no obvious thrill SKIN: No rash, no excessive bruising, petechiae, or purpura. mild edema NEUROLOGIC: Cranial nerves II-XII intact without motor/sensory deficit. mild pitting edema Assessment & Plan 1/ compensated cirrhosis, likely 2/2 alcohol abuse --now sober, 2/ obesity PLAN: 1/ advised on ongoing alcohol abstinence as before, weight loss--healthy diet and living discussed, less red meat and pork 2/ nose bleeds 2/2 low plts and INR --advised to avoid dryness and picking nose, can use saline spray -- 3/ EGD for varices screen in 1-2 yrs, no evidence of hepatic encephalopathy--will discuss colonoscopy at future date 4/ u/s for HCC screen q6 months, next one will be ordered new year 5/ daily multivitamin 6/ use amiloride and lasix--has not refilled, sent again 7/ avoid nsaids and avoid can use low dose tylenol 8/ might be good candidate for liver transplant program at [facility], MELD borderline right now at 14 9/ may benefit from weight loss medication, if cant lose weight thru diet and lifestyle changes--will cont to monitor [facility] Surgical History H/O colonoscopy History of esophagogastroduodenoscopy (EGD) Hx of hand surgery Family History Mother Diabetes Heart problem Social History Household Members: Significant Other and Children Alcohol intake: former Year quit: 2018 Physical Exam Vital Signs: Last Vital Signs Pulse 80 06/01/25 13:21 BP 130/60 06/01/25 13:21 BMI result Body Mass Index 45.9 Assessment & Plan Assessment & Plan (1) Cirrhosis: Code(s): K74.60 - Unspecified cirrhosis of liver Category: Medical Qualifiers: Hepatic cirrhosis type: alcoholic cirrhosis Ascites presence: with ascites Qualified Code(s): K70.31 - Alcoholic cirrhosis of liver with ascites Plan: as above Orders: Orders Complete Blood Count Auto Diff Today K70.31 - Alcoholic cirrhosis of liver with ascites Comprehensive Met. Panel Today K70.31 - Alcoholic cirrhosis of liver with ascites, K75.81 - Nonalcoholic steatohepatitis (TAYLOR) Prothrombin Time INR Today K70.31 - Alcoholic cirrhosis of liver with ascites Ferritin Today K70.31 - Alcoholic cirrhosis of liver with ascites Medications: Refilled amiloride 5 mg PO DAILY 30 tabs 2RF furosemide 40 mg PO DAILY 30 tabs 2RF Coding Level of Care Code Est Pt Level 4 (61865) Diagnoses Alcoholic cirrhosis of liver with ascites K70.31 Hepatic cirrhosis type: alcoholic cirrhosis Ascites presence: with ascites
== END 2025-06-01 14:02 | disposition home or self-care (01) ==
LOC: HO.HGI 13:06
PROVIDERS: PCP Family Medicine; Visit Provider Internal Medicine Gastroenterology
DX: K70.31 Alcoholic cirrhosis of liver with ascites (principal)
CPT/HCPCS: 99214

== ENCOUNTER → 2025-06-01 13:05 | Outpatient (BNVA) | payer MEDICAID, SELFPAY | PROVIDERS: PCP Family Medicine; Visit Provider Internal Medicine Gastroenterology | DX: K70.31 Alcoholic cirrhosis of liver with ascites (principal) | CPT/HCPCS: 99212 ==

== ENCOUNTER 2025-08-17 22:12 | Emergency (ER) | payer MEDICAID, SELFPAY ==
[2025-08-17 22:21] VITALS: BP 147/70; PULSE 78; RESP 18; TEMP 36.6; O2SAT 97; BMI 43.9
[2025-08-17 22:46] LABS: MANUAL DIFF FLAG NO
[2025-08-17 22:48] LABS: Hematocrit 36.8 % (42.0-52.0); Hemoglobin 12.6 g/dl (14.0-18.0); Imm Gran Abs Auto 0.00 X10*3/uL (0.00-0.03); Imm Gran Pct Auto 0.0 % (0.0-0.4); Lymphocytes Absolute Auto 1.1 X10*3/uL (1.2-4.9); Mean Corpuscular HGB Conc 34.2 g/dl (31.0-36.0); Mean Corpuscular Hemoglobin 29.7 pg (27.0-33.0); Mean Corpuscular Volume 86.8 fL (80.0-98.0); NRBC Abs Auto 0.000 X10*3/uL (0.0-0.012); NRBC Pct Auto 0.0 /100WBC (0.0-0.2); Red Blood Count 4.24 X10*6/uL (4.60-5.80); White Blood Count 2.8 X10*3/uL (4.8-10.8)
[2025-08-17 22:49] LABS: Appearance Urine Clear; Glucose Urine UA Negative (Negative); PH 6.5 (5.0-9.0); Specific Gravity - Urine 1.020 (1.005-1.025)
[2025-08-17 22:52] LABS: Platelet Count 73 X10*3/uL (160-400)
[2025-08-17 23:01] LABS: Alanine Aminotransferase 32 U/L (0-40); Albumin Level 3.5 g/dL (3.5-5.0); Alkaline Phosphatase 125 U/L (39-117); Anion Gap 9 (12-20); Aspartate Amino Transferase 74 U/L (5-37); Blood Urea Nitrogen 9 mg/dL (9-16); Calcium 8.5 mg/dL (8.4-10.2); Carbon Dioxide 24 mmol/L (22-29); Chloride 108 mmol/L (96-108); Creatinine Clr Calc Pharmacy 130.7; Estimated Glomerular Filt Rate > 60; Potassium 4.3 mmol/L (3.3-5.1); Sodium 137 mmol/L (135-145); Total Protein 6.5 g/dL (6.5-8.0)
--- OUTSIDE RECORDS SUMMARY | 2025-08-17 23:49 | XMS_ITS ---
Author Organization [facility] Address [address] [place] [address] [address] [place] [address] Care Team Providers Care Wellness Coordinator Name Role Phone Ivanna Pandya Unavailable Unavailable CHW Complex Status:Outreach In Progress (Enrolling) Start date:07/17/2025 Enrollment reason:ADT Feed Overview CHW outreach #3 07/28/25. Case Team Name Relationship Phone Ivanna Pandya(Responsible Staff) Continued Care and Services Coordination
--- OUTSIDE RECORDS SUMMARY | 2025-08-17 23:49 | XMS_ITS | Clinical Summary ---
Author Organization [facility] Address [address] [place] [address] Phone Care Team Providers Care Outreach Professional Name Role Phone Abel Henderson Primary Care Provider [phone] Allergies No known active allergies Medications albuterol HFA (PROAIR HFA ; PROVENTIL HFA ; VENTOLIN HFA) 90 mcg/actuation inhaler Inhale 1-2 puffs every 4-6 hours as needed for shortness of breath. 7 g Active Social History Tobacco Use Types Packs/Day Years Used Date Smoking Tobacco: Never Smokeless Tobacco: Never Tobacco Cessation:Counseling Given: Not Answered Sex and Gender Information Value Date Recorded Sex Assigned at Not on file Legal Sex Male 10:54 PM EST Gender Identity Not on file Sexual Orientation Not on file Last Filed Vital Signs Vital Sign Reading [...] Years (1 of 1 - PCV) 02/02/2020 RSV Immunization Adult Patients (1 - Risk 50-74 years 1-dose series) 02/02/2020 HIV Screening 08/06/2022 Social Influencers of Health Screening 08/06/2022 Colorectal Cancer Screening: Stool Based Tests (FOBT/FIT) 10/15/2023 10/15/2022 Depression Screening 09/03/2024 Hypertension/CHF/CAD Annual BMP Blood Test 12/19/2024 12/20/2023 COVID-19 Vaccine (4 - 2024-2 6 season) 2025 11/03/2021, 03/23/2021, 02/13/2021 Influenza Vaccine (#1) 2025 , 09/27/2017 DTaP,Tdap,and Td Vaccines (2 - Td or [...] topic Insurance MEDICAID - [place] Care Teams Outreach Professional Relationship Specialty Start Date End Date Abel Henderson PA [address] [place] [phone] PCP - General 04/25/23
--- OUTSIDE RECORDS SUMMARY | 2025-08-17 23:49 | XMS_ITS | Encounter Summary ---
Author Organization [facility] Address [address] [place] [id number] Phone Care Team Providers Care Seed Laboratory Technician Name Role Phone Unknown, Unknown Primary Care Provider Sarmad erazo Encounter Details Date Type Department Care Team (Late st Contact Info) Description 08/04/2023 Procedure [place] [facility] [place] [address] [place] [address] Social History Tobacco Use Types Packs/Day Years Used Date Smoking Tobacco: Never Assessed Education Answer Date Recorded Are you interested in more education? Not on jose antonio e 08/04/2023 Are you concerned about learning? Not on file 08/04/2023 No 08/04/2023 No 08/04/2023 Digital Access Answer Date Recorded No 08/04/2023 No 08/04/2023 Reliable internet access at home? Not on file 08/04/2023 Device with a working camera? Not on file Sex and Gender Information Value Date Recorded Sex Assigned at Not on file Legal Sex Male 1:31 PM EST Gender Identity Not on file Sexual Orientation Not on file documented as of this encounter Plan of Treatment Not on file documented as of this encounter Visit Diagnoses Not on filedocumented in this encounter Care Teams Seed Laboratory Technician Relationship Specialty Start Date End Date Unknown, Unknown, PCP - General 08/03/23 documented as of this encounter Additional Source Comments The information contained in this document represents components of the legal health record. It is not the complete legal health record.[facility]
--- OUTSIDE RECORDS SUMMARY | 2025-08-17 23:49 | XMS_ITS | Clinical Summary ---
Author Organization [facility] Address [facility] [employer] [address] [address] Phone Care Team Providers Care Sales Specialist Name Role Phone Unknown, Unknown Primary Care Provider Sarmad erazo Allergies No known active allergies Social History Tobacco Use Types Packs/Day Years [...] Sign Reading Time Taken Comments Blood Pressure 154/74 08/04/2023 7:39 PM EST Pulse 79 08/04/2023 7:39 PM EST Temperature 36.8 C (98.3 F) 08/04/2023 6:20 PM EST Respiratory Rate 16 08/04/2023 7:39 PM EST Oxygen Saturation 99% 08/04/2023 7:39 PM EST Inhaled Oxygen Concentration - - Weight - - Height - - Body Mass Index - - Plan of Treatment Health Maintenance Due Date Last Done Comments LIPID PANEL 1970 DEPRESSION SCREENING 1982 SMOKING Hx and SMOKELESS TOB ACCO SCREENING 1983 HEPATITIS C SCREENING 02/02/1988 HIV ONE-TIME SCREENING (18-6 5 YEARS) 02/02/1988 COLOGUARD 2015 COLONOSCOPY 2015 COLORECTAL CANCER SCREENING 2015 FIT TEST 2015 FOBT 2015 SIGMOIDOSCOPY 2015 VIRTUAL COLONOSCOPY 2015 PNEUMOCOCCAL VACCINES (50+ y ears) (1 of 1 - PCV) 02/02/2020 ZOSTER VACCINES (1 of 2) 02/02/2020 INFLUENZA VACCINE (#1) 2025 COVID-19 VACCINE (1 - 2024-2 6 season) 2025 Adult Td,Tdap Booster 09/27/2027 09/27/2017 RSV VACCINE (1 - 1-dose 75+ series) 2045 HEPATITIS A VACCINES Aged Out No long er eligible based on patient's age to complete this topic HIB VACCINES Aged Out No longer eligi ble based on patient's age to complete this topic MENINGOCOCCAL VACCINES (ACWY) Aged Out No longer eligible based on patient's age to complete this topic MENINGOCOCCAL VACCINES (B) Aged Out N o longer eligible based on patient's age to complete this topic Medical Devices Not on file Insurance C3 ACO C3 ACO C3 ACO C3 ACO C3 ACO [facility] C3 ACO Care Teams Sales Specialist Relationship Specialty Start Date End Date Unknown, Unknown, PCP - General 08/03/23 Additional Source Comments The information contained in this document represents components of the legal health record. It is not the complete legal health record.[facility]
--- OUTSIDE RECORDS SUMMARY | 2025-08-17 23:49 | XMS_ITS | Clinical Summary ---
Author Organization [facility] [employer] Address [address] [facility] 7 [place] [address] Care Team Providers Care Quality Assurance Technician Name Role Phone Ivanna Pandya Unavailable Unavailable Encounters Date Type Department Care Team Description 08/03/2025 Patient Outreach [facility] () Department [address] [place] [phone] Livia Lott RN 07/27/[address] [phone] Ivanna Pandya 07/27/2025 Patient Outreach [facility] () Department [address] [place] [phone] Livia Lott, MARICRUZ C3 Care Management - UTR 1 07/21/[address] [phone] Ivanna Pandya 07/18/2025 Patient Outreach [facility] () Department [address] [place] [phone] Livia Lott, RN C3 Care Management 07/17/2025 Patient Outreach [address] [phone] Brooke Javed 07/17/2025 Patient Outreach [address] [phone] Brooke Javed from Last 3 Months Social History Tobacco Use Types Packs/Day Years Used Date Smoking Tobacco: Never Assessed Sex and Gender Information Value Date Recorded Sex Assigned at Not on file Legal Sex Male 9:21 PM EDT Gender Identity Not on file Sexual Orientation Not on file Plan of Treatment Health Maintenance Due Date Last Done Comments CT Colonography 1970 Colonoscopy 1970 Depression Screening 1970 FIT DNA/Cologuard 1970 FOBT 1970 Lipid Panel 1970 SDOH Screening 1970 Sigmoidoscopy 1970 Disability Screening 1970 Alcohol/Substance Use Screening 1982 Tobacco Screening 1982 Hepatitis C Screening 02/02/1988 Hepatitis A Vaccines (1 of 2 - Risk 2-dose series) 1989 Pneumococcal Vaccine: 50+ Years (1 of 1 - PCV) 02/02/2020 RSV Patients and Patients Aged 60 years or older (1 - Risk 50-74 years 1-dose series) 02/02/2020 Colorectal Cancer Screening 10/15/2023 FIT 10/15/2023 10/15/2022 COVID-19 Vaccine (4 - 2024-2 6 season) 2025 11/03/2021, 03/23/2021, 02/13/2021 Influenza Vaccine (#1) 2025 , 09/27/2017 DTaP/Tdap/Td Vaccines (2 - T d or Tdap) 09/27/2027 09/27/2017 HIV Screening Completed 11/14/2023 Zoster Vaccines Completed 11/14/2023, 06/01/2022 Hepatitis B Vaccines Completed 01/02/2024, 11/28/2023 HIB Vaccines Aged Out No longer eligi [...] patient's age to complete this topic Meningococcal Vaccine Aged Out No sonia angelina eligible based on patient's age to complete this topic RSV under 20 months Aged Out No longe r eligible based on patient's age to complete this topic Rotavirus Vaccines Aged Out No longer eligible based on patient's age to complete this topic Care Teams Quality Assurance Technician Relationship Specialty Start Date End Date Ivanna Pandya 07/17/25
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
[2025-08-18] MEDS: diazePAM 10 MG/2 ML CARTRIDGE IM (00:24)
[2025-08-18 00:38] VITALS: BP 165/51; PULSE 74; RESP 20; TEMP 36.8; O2SAT 97
[2025-08-18 00:42] VITALS: BP 165/51; PULSE 74; RESP 20; TEMP 36.8; O2SAT 97
== END 2025-08-18 00:42 | disposition home or self-care (01) ==
PROVIDERS: Emergency Provider Emergency Medicine; PCP Dentist General Practice
DX: M54.16 Radiculopathy, lumbar region (principal); I10 Essential (primary) hypertension
CPT/HCPCS: 36415; 80053; 81003; 85025; 96372; 99284; J1885; J3360